=== PATIENT | male | born 1960 | race Caucasian/White ===

== ENCOUNTER 2016-02-29 13:43 | Emergency (ER) | payer SELFPAY ==
[~2016-02-29] VITALS: Ht 180.3 cm; Wt 113.4 kg
[~2016-02-29 13:43] MED LIST: AMLO10TA4 PO; AMLO5TAB2 PO; ASPI325T4 PO; ATOR20TA58 PO; BUSP10TA PO; CHLO4TAB20 PO; CLOP75TA PO; DOCU-27 PO; FINA5TAB4 PO; FURO-68 PO; HYDR25TA PO; IBUP-1027 PO; INDO50CA PO; ISOS30TA4 PO; LISI40TA PO; LOPE2TAB56 PO; MELO-150 PO; METO50TA2 PO; NITR0.4T SL; OLAN5TAB3 PO; RANI300T PO; SERT25TA PO; TERA2CAP3 PO; TRAM-29 PO; TRAZ50TA15 PO
[2016-02-29] MEDS ORDERED: LEVO750T31 PO (14:32)
[2016-02-29] MEDS ORDERED: PRED20TA PO (14:33)
--- NOTE | 2016-02-29 14:33 | PHYS DOC ---
Past Medical History Past Medical History: A-Fib, CHF, COPD, GERD, Hypertension Past Surgical History: Appendectomy, Coronary Bypass Surgery Alcohol Use: None Drug Use: None Adult General Chief Complaint Chief Complaint: COUGH HPI HPI Patient is a 55 year old male presents emergency Department stating he's had a 3 week history of cough and congestion. He states that he has a history of COPD and continues to smoke. He states that he has had some shortness of breath with ambulation. He also states that he has been having a productive cough that is green in color occasionally he has cleared production of cough with streaking of blood. Patient states that he has taken his respiratory inhalers more frequently than normal. He denies any fever, chills or any nausea vomiting. She is also noncompliant with medication as he states he has a history of high blood pressure. He states that he has been out of his high blood pressure medication. He states that the emergency department refills his prescriptions for him. He denies having a primary care physician. Review of Systems Review of Systems Constitutional: Denies fever or chills [] Eyes: Denies change in visual acuity, redness, or eye pain [] HENT: Denies nasal congestion or sore throat [] Respiratory: cough with shortness of breath Cardiovascular: No additional information not addressed in HPI [] GI: Denies abdominal pain, nausea, vomiting, bloody stools or diarrhea [] : Denies dysuria or hematuria [] Musculoskeletal: Denies back pain or joint pain [] Integument: Denies rash or skin lesions [] Neurologic: Denies headache, focal weakness or sensory changes [] Current Medications Current Medications Current Medications Medications (Trade) Dose Ordered Sig/Jus Start Time Stop Time Status Last Admin Dose Admin Albuterol/ Ipratropium (Duoneb) 3 ml 1X ONCE 02/29/16 14:45 02/29/16 14:46 DC 02/29/16 14:40 3 ML Prednisone (Prednisone) 40 mg 1X ONCE 02/29/16 14:45 02/29/16 14:46 DC 02/29/16 14:41 40 MG Allergies Allergies Allergies Coded Allergies Type Severity Reaction Last Updated Verified codeine Allergy Severe throat swelling, tolerates Morphine 05/30/14 Yes Physical Exam Physical Exam Constitutional: Well developed, well nourished, no acute distress, non-toxic appearance. [] HENT: Normocephalic, atraumatic, bilateral external ears normal, oropharynx moist, no oral exudates, nose normal. [] Eyes: PERRLA, EOMI, conjunctiva normal, no discharge. [] Neck: Normal range of motion, no tenderness, supple, no stridor. [] Cardiovascular:Heart rate regular rhythm, no murmur [] Lungs & Thorax: Bilateral breath sounds decreased bilaterally Skin: Warm, dry, no erythema, no rash. [] Back: No tenderness Extremities: No tenderness, no cyanosis, no clubbing, ROM intact, no edema. [] Neurologic: Alert and oriented X 3, normal motor function, normal sensory function, no focal deficits noted. [] Psychologic: Affect normal, judgement normal, mood normal. [] Current Patient Data Vital Signs Vital Signs Date Time Temp Pulse Resp B/P Pulse Ox O2 Delivery O2 Flow Rate FiO2 02/29/16 14:43 Room Air 02/29/16 14:01 97.7 77 18 169/118 98 97.7 EKG EKG [] Radiology/Procedures Radiology/Procedures [facility] [address] [place] [address] IMAGING REPORT Signed PATIENT: ARIAS BRAUN ACCOUNT: [id number] : 1960 LOCATION: ER AGE: 55 SEX: M EXAM STATUS: PRE ER ORD. PHYSICIAN: RODRÍGUEZ TSE NP REASON: cough times 3 weeks green to clear with blood streaks, SOA PROCEDURE: CHEST PA & LATERAL Indication: Productive cough for 3 weeks. Time of exam 1425 hours. Correlation is made with prior study 12/16/2015. Changes of median sternotomy and CABG are noted. The lungs are clear. The pulmonary vascularity is normal. No effusion or pneumothorax is detected. Impression: No acute cardiopulmonary process is detected. PQRS Compliance Statement: One or more of the following individualized dose reduction techniques were utilized for this examination: 1. Automated exposure control 2. Adjustment of the mA and/or kV according to patient size 3. 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 (See chart for details) Chest x-ray was negative per radiologist. Patient was provided with respiratory treatment steroids. He'll be discharged home on Levaquin as the signs and symptoms of become recurrent for the last 3 weeks. We'll recommend him to continue his treatments at home. Patient agrees with discharge instructions treatment regimens and follow-up recommendations. Since symptoms to return back to emergency department as been provided. Patient was also instructed to follow- up with her primary care physician in regards to his blood pressure. Patient will be provided with hydrochlorothiazide at discharge to help with his blood pressure. Patient denies any shortness of air difficulty breathing chest pain or any lower extremity edema. [] Dragon Disclaimer Dragon Disclaimer This electronic medical record was generated, in whole or in part, using a voice recognition dictation system. Departure Departure Impression: Primary Impression: COPD with acute exacerbation Additional Impression: Hypertension Disposition: 01 HOME, SELF-CARE Condition: STABLE Referrals: UNKNOWN PCP NAME (PCP) Patient Instructions: Chronic Obstructive Pulmonary Disease Exacerbation, Easy- to-Read, Hypertension Additional Instructions: Activity as tolerated Medication as prescribed Continue with your medication at home Followup with primary care provider in 3-5 days Return to emergency department as needed for signs and symptoms that become worse. Scripts Hydrochlorothiazide (Hydrochlorothiazide Capsule )12.5 Mg Capsule1 Cap PO DAILY #30 CAP Ref 0 Prov:RODRÍGUEZ TSE NP 02/29/16 Prednisone 20 Mg [id number] Mg PO DAILY #10 TAB Prov:RODRÍGUEZ TSE NP 02/29/16 Levofloxacin (Levaquin)750 Mg Tablet1 Tab PO DAILY #5 TAB Prov:RODRÍGUEZ TSE NP 02/29/16 Problem Qualifiers RODRÍGUEZ TSE NP Feb 29, 2016 14:33
[2016-02-29] MEDS ORDERED: PREDNISONE 20 MG TABLET PO ONE (14:45)
[2016-02-29] MEDS ORDERED: IPRATRPIUM/ALBUTEROL 0.5/2.5MG 3 ML NEBU. NEB ONE (14:45)
--- NOTE | 2016-02-29 14:54 | RAD ---
Indication: Productive cough for 3 weeks. Time of exam 1425 hours. Correlation is made with prior study 12/16/2015. Changes of median sternotomy and CABG are noted. The lungs are clear. The pulmonary vascularity is normal. No effusion or pneumothorax is detected. Impression: No acute cardiopulmonary process is detected. PQRS Compliance Statement: One or more of the following individualized dose reduction techniques were utilized for this examination: 1. Automated exposure control 2. Adjustment of the mA and/or kV according to patient size 3. Use of iterative reconstruction technique
[2016-02-29 15:10] VITALS: BP 163/110
[2016-02-29] MEDS ORDERED: HYDR12.53 PO (15:19)
== END 2016-02-29 15:24 | disposition home or self-care (01) ==
LOC: ER 13:43
DX: J44.1 Chronic obstructive pulmonary disease with (acute) exacerbation (principal); I10 Essential (primary) hypertension; I48.91 Unspecified atrial fibrillation; I11.0 Hypertensive heart disease with heart failure; I50.9 Heart failure, unspecified; Z91.14 Patient's other noncompliance with medication regimen; Z88.5 Allergy status to narcotic agent
CPT/HCPCS: 71020; 94250; 94640; 99284; J7512; J7620

== ENCOUNTER 2016-07-29 19:50 | Emergency (ER) | payer SELFPAY ==
[~2016-07-29 19:50] MED LIST changes: +ALBU2.5V5 NEB; -ASPI325T4 PO; +ASPI325T8 PO; +DOCU-109 PO; -DOCU-27 PO; +FLUT12AE IH; +HYDR12.53 PO; +LEVO750T31 PO; +LOSA100T2 PO; -MELO-150 PO; +MELO15TA23 PO; +METO25TA4 PO; +OLME40TA12 PO; +PITA2TAB2 PO; +PRED20TA PO; -TRAM-29 PO; +TRAM-48 PO
--- NOTE | 2016-07-29 21:28 | PHYS DOC ---
Past Medical History Past Medical History: A-Fib, CHF, COPD, GERD, High Cholesterol, Hypertension, Other Additional Past Medical Histor: CHRONIC BACK PAIN Past Surgical History: Appendectomy, Cholecystectomy, Coronary Bypass Surgery Alcohol Use: None Drug Use: None Adult General Chief Complaint Chief Complaint: ABSCESS HPI HPI Patient is a 55 year old male who presents with right groin pain and swelling over the past 4 days. States pain is constant, gradually worsening, radiating into scrotum and testicle. States is looked like a boil and popped in the shower tonight. He denies scrotal or testicle swelling, trauma, dysuria, penile discharge, f/c, n/v, constipation, abdominal pain. Review of Systems Review of Systems Constitutional: Denies fever or chills [] Eyes: Denies change in visual acuity, redness, or eye pain [] HENT: Denies nasal congestion or sore throat [] Respiratory: Denies cough or shortness of breath [] Cardiovascular: No additional information not addressed in HPI [] GI: Denies abdominal pain, nausea, vomiting, bloody stools or diarrhea [] : Denies dysuria or hematuria [] Musculoskeletal: Denies back pain or joint pain [] Integument: Denies rash [] Neurologic: Denies headache, focal weakness or sensory changes [] Endocrine: Denies polyuria or polydipsia [] Current Medications Current Medications Current Medications Medications (Trade) Dose Ordered Sig/Jus Start Time Stop Time Status Last Admin Dose Admin Acetaminophen/ Hydrocodone Bitart (Lortab 10/325) 1 tab 1X ONCE 07/29/16 21:30 07/29/16 21:31 DC 07/29/16 21:55 1 TAB Allergies Allergies Allergies Coded Allergies Type Severity Reaction Last Updated Verified codeine Allergy Severe throat swelling, tolerates Morphine 07/29/16 Yes Physical Exam Physical Exam Constitutional: Well developed, well nourished, no acute distress, non-toxic appearance. [] HENT: Normocephalic, atraumatic, bilateral external ears normal, oropharynx moist, nose normal. [] Eyes: PERRLA, EOMI. [] Neck: Normal range of motion, supple. [] Cardiovascular:Heart rate regular rhythm [] Lungs & Thorax: Bilateral breath sounds clear to auscultation [] Abdomen: Bowel sounds normal, soft, no tenderness. [] Genitourinary: Penis without lesions, discoloration, swelling or discharge; scrotum without lesions, discoloration, swelling or discharge; testicles appropriately tender; nontender cords; Right Inguinal fold with 2x1cm area of induration with central opening with serosanguineous drainage, tender, but no crepitance; nontender perineum with no visual or palpable abnormality Skin: Warm, dry, no erythema, no rash. [] Back: Normal ROM. [] Extremities: No tenderness, ROM intact, no edema. [] Neurologic: Alert and oriented X 3, normal motor function, normal sensory function, no focal deficits noted. [] Psychologic: Affect normal, judgement normal, mood normal. [] Current Patient Data Vital Signs Vital Signs Date Time Temp Pulse Resp B/P (MAP) Pulse Ox O2 Delivery O2 Flow Rate FiO2 07/29/16 19:50 98.1 83 18 172/109 (130) 95 Room Air 98.1 Radiology/Procedures Radiology/Procedures Ultrasound soft tissue right lower quadrant IMPRESSION: Complex fluid collection at the right groin, likely related to known abscess. Electronically signed by: Anoop Laws MD (07/29/2016 10:14 PM) Course & Med Decision Making Course & Med Decision Making Pertinent Labs and Imaging studies reviewed. (See chart for details) Imaging with simple abscess. Will place on antibiotics and pain medicine for trial of outpatient therapy. Encouraged close follow-up. Return precautions given. He understands and agrees with plan. Dragon Disclaimer Dragon Disclaimer This electronic medical record was generated, in whole or in part, using a voice recognition dictation system. Departure Departure Impression: Primary Impression: Abscess Disposition: 01 HOME, SELF-CARE Condition: STABLE Referrals: NO PCP (PCP) Patient Instructions: Abscess, [id number] Additional Instructions: Take Bactrim to help with skin infection. Take Tylenol or ibuprofen as needed for moderate pain. Take hydrocodone as needed for severe pain. Do not drink, drive or operate heavy machinery after taking hydrocodone as it may make you sleepy. Follow-up with your primary care doctor within one week. Return for any concerns. Scripts Hydrocodone Bit/Acetaminophen (HYDROCODONE-APAP 5-325 ) 1 Each Tablet 1-2 TAB PO PRN Q4-6HRS Y for PAIN, #14 TAB 0 Refills Prov: Omar ELY MD 07/29/16 Sulfamethoxazole/Trimethoprim (BACTRIM DS TABLET) 1 Each Tablet 1 TAB PO BID, #14 TAB Prov: Omar ELY MD 07/29/16 Omar ELY MD Jul 29, 2016 21:28
[2016-07-29] MEDS ORDERED: HYDROcodone/APAP 10/325 1 TAB TABLET PO ONE (21:30)
--- NOTE | 2016-07-29 22:17 | RAD ---
Limited right lower quadrant ultrasound dated 07/29/2016. No comparison available. Clinical indication: History of right groin abscess. Right groin pain. FINDINGS: Sonographic imaging performed in the area of palpable abnormality. At the medial right thigh near the scrotum, there is a small hypoechoic collection just deep to the skin surface that measures up to 2.6 cm maximum dimension. There is prominent increased color Doppler flow in the region. IMPRESSION: Complex fluid collection at the right groin, likely related to known abscess. Electronically signed by: Anoop Laws MD (07/29/2016 10:14 PM)
[2016-07-29] MEDS ORDERED: SULF1TAB24 PO (22:24)
[2016-07-29] MEDS ORDERED: HYDR-2758 PO (22:24)
[2016-07-29 22:30] VITALS: BP 147/93
== END 2016-07-29 22:44 | disposition home or self-care (01) ==
LOC: ER 19:50
DX: L02.214 Cutaneous abscess of groin (principal); E78.00 Pure hypercholesterolemia, unspecified; I11.0 Hypertensive heart disease with heart failure; I50.9 Heart failure, unspecified; I48.91 Unspecified atrial fibrillation; K21.9 Gastro-esophageal reflux disease without esophagitis; J44.9 Chronic obstructive pulmonary disease, unspecified; G89.29 Other chronic pain; Z90.49 Acquired absence of other specified parts of digestive tract; Z95.1 Presence of aortocoronary bypass graft; Z88.5 Allergy status to narcotic agent
CPT/HCPCS: 76881; 99284-25

== ENCOUNTER 2016-11-04 00:03 | Inpatient (IN) | payer OTHER ==
[~2016-11-04] VITALS: Ht 180.3 cm; Wt 109.3 kg
[~2016-11-04 00:03] MED LIST changes: +HYDR-2758 PO; -METO50TA2 PO; +METO50TA6 PO; +PHEN1SUP75 RC; +PRAV40TA2 PO; +SULF1TAB24 PO; +WITC1MED TP
[2016-11-04 00:41] LABS: BASO # 0.1 x10^3/uL (0.0-0.2); BASO % 1 % (0-3); EOS % 1 % (0-3); HEMATOCRIT 43.5 % (39.0-53.0); HEMOGLOBIN 14.6 g/dL (13.0-17.5); LYMPH # 1.8 x10^3/uL (1.0-4.8); LYMPH % 12 % (24-48); MEAN CORPUSCULAR HEMOGLOBIN 29 pg (25-35); MEAN CORPUSCULAR HGB CONC 34 g/dL (31-37); MEAN CORPUSCULAR VOLUME 87 fL (79-100); MONO % 6 % (0-9); NEUT % 80 % (31-73); PLATELET COUNT 219 x10^3/uL (140-400); RED CELL DISTRIBUTION WIDTH 14.3 % (11.5-14.5); WHITE BLOOD COUNT 14.2 x10^3/uL (4.0-11.0)
[2016-11-04 00:50] LABS: INR 1.1 (0.8-1.1); PROTHROMBIN TIME PATIENT 13.7 SEC (11.7-14.0)
[2016-11-04 00:53] LABS: CALCIUM 9.2 mg/dL (8.5-10.1); CREATININE 1.2 mg/dL (0.7-1.3); GFR 62.9; POTASSIUM 3.5 mmol/L (3.5-5.1)
[2016-11-04 01:00] LABS: ALBUMIN 3.7 g/dL (3.4-5.0); ALBUMIN/GLOBULIN RATIO 1.2 (1.0-1.7); MAGNESIUM 1.9 mg/dL (1.8-2.4); TOTAL BILIRUBIN 0.4 mg/dL (0.2-1.0); TOTAL PROTEIN 6.9 g/dL (6.4-8.2)
[2016-11-04] MEDS ORDERED: NITROGLYCERIN SUBLINGUAL 0.4 MG BOTTLE OF 25. SL PRN (01:30)
[2016-11-04] MEDS ORDERED: ONDANSETRON PF 4 MG/2 ML VIAL. IV PRN (01:30)
[2016-11-04] MEDS ORDERED: ONDANSETRON PF 4 MG/2 ML VIAL. IV ONE (02:00)
[2016-11-04] MEDS: ACETAMINOPHEN 325 MG TABLET. PO PRN ×2 (02:01→12:27)
[2016-11-04 03:06] VITALS: BP 129/86
[2016-11-04] MEDS: MORPHINE SULFATE 4 MG/ML DISP.SYRIN. IV PRN ×2 (03:26→08:27)
--- NOTE | 2016-11-04 03:32 | PHYS DOC ---
Past Medical History Past Medical History: A-Fib, CHF, COPD, Diabetes-Type II, GERD, High Cholesterol, Hypertension, Other Additional Past Medical Histor: CHRONIC BACK PAIN, BPH, ARTEROSCLEROTIC HEART DISEASE, ADJUSTMENT DISORDER Past Surgical History: Appendectomy, Cholecystectomy, Coronary Bypass Surgery Additional Past Surgical Histo: w 3 stents Alcohol Use: None Drug Use: None Adult General Chief Complaint Chief Complaint: CHEST PAIN HPI HPI Patient is a 55 year old male who presents with chest pain. The patient reports onset of substernal chest pressure about 2 hours prior to arrival while at rest. Reports that pain radiated to left shoulder, associated with shortness of breath & nausea, denies diaphoresis. Denies fevers/chills, cough, lower extremity pain/swelling. He has history of CAD s/p cardiac stenting & CABG, DM, HTN, CHF, COPD. He was admitted here about 2 weeks ago for accelerated HTN, seen by cardiology, at that time they discussed medical management vs. heart cath & he ultimately went home with medical management but did not fill prescriptions. he is currently incarcerated. Review of Systems Review of Systems Constitutional: Denies fever or chills Eyes: Denies change in visual acuity HENT: Denies nasal congestion or sore throat Respiratory: Denies cough, reports shortness of breath Cardiovascular: Reports chest pain, denies edema GI: Denies abdominal pain, nausea, vomiting, bloody stools or diarrhea : Denies dysuria or hematuria Musculoskeletal: Denies back pain or joint pain Integument: Denies rash or skin lesions Neurologic: Denies headache, focal weakness or sensory changes Allergies Allergies Allergies Coded Allergies Type Severity Reaction Last Updated Verified codeine Allergy Severe throat swelling, tolerates Morphine 07/29/16 Yes Physical Exam Physical Exam Constitutional: obese, no acute distress, non-toxic appearance. HENT: Normocephalic, atraumatic, bilateral external ears normal, oropharynx moist, nose normal. Eyes: conjunctiva normal, no discharge. Neck: supple, no stridor. Cardiovascular: RRR, 2/6 systolic murmur, no edema. Lungs & Thorax: LCTAB, no wheezing, no respiratory distress. no reproducible tenderness with palpation over anterior chest wall. Abdomen: soft, nontender, nondistended. Skin: Warm, dry, no erythema, no rash. Back: No tenderness. Extremities: No tenderness, no edema. no calf tenderness or swelling. Neurologic: Alert and oriented X 3, no focal deficits noted. Psychologic: Affect normal, judgement normal, mood normal. Current Patient Data Vital Signs Vital Signs Date Time Temp Pulse Resp B/P (MAP) Pulse Ox O2 Delivery O2 Flow Rate FiO2 11/04/16 00:05 97.8 69 18 120/72 (88) 99 Room Air 97.8 Lab Values Laboratory Tests Test 11/04/16 00:30 White Blood Count 14.2 x10^3/uL (4.0-11.0) H Red Blood Count 5.00 x10^6/uL (4.30-5.70) Hemoglobin 14.6 g/dL (13.0-17.5) Hematocrit 43.5 % (39.0-53.0) Mean Corpuscular Volume 87 fL (79-100) Mean Corpuscular Hemoglobin 29 pg (25-35) Mean Corpuscular Hemoglobin Concent 34 g/dL (31-37) Red Cell Distribution Width 14.3 % (11.5-14.5) Platelet Count 219 x10^3/uL (140-400) Neutrophils (%) (Auto) 80 % (31-73) H Lymphocytes (%) (Auto) 12 % (24-48) L Monocytes (%) (Auto) 6 % (0-9) Eosinophils (%) (Auto) 1 % (0-3) Basophils (%) (Auto) 1 % (0-3) Neutrophils # (Auto) 11.3 x10^3uL (1.8-7.7) H Lymphocytes # (Auto) 1.8 x10^3/uL (1.0-4.8) Monocytes # (Auto) 0.9 x10^3/uL (0.0-1.1) Eosinophils # (Auto) 0.1 x10^3/uL (0.0-0.7) Basophils # (Auto) 0.1 x10^3/uL (0.0-0.2) Prothrombin Time 13.7 SEC (11.7-14.0) Prothrombin Time INR 1.1 (0.8-1.1) PTT 30 SEC (24-38) Sodium Level 142 mmol/L (136-145) Potassium Level 3.5 mmol/L (3.5-5.1) Chloride Level 106 mmol/L (98-107) Carbon Dioxide Level 26 mmol/L (21-32) Anion Gap 10 (6-14) Blood Urea Nitrogen 12 mg/dL (8-26) Creatinine 1.2 mg/dL (0.7-1.3) Estimated GFR (Cockcroft-Gault) 62.9 BUN/Creatinine Ratio 10 (6-20) Glucose Level 115 mg/dL (70-99) H Calcium Level 9.2 mg/dL (8.5-10.1) Magnesium Level 1.9 mg/dL (1.8-2.4) Total Bilirubin 0.4 mg/dL (0.2-1.0) Aspartate Amino Transferase (AST) 13 U/L (15-37) L Alanine Aminotransferase (ALT) 21 U/L (16-63) Alkaline Phosphatase 77 U/L (46-116) Troponin I Quantitative < 0.017 ng/mL (0.000-0.055) FP-Svr-W-Type Natriuretic Peptide 290 pg/mL (0-124) H Total Protein 6.9 g/dL (6.4-8.2) Albumin 3.7 g/dL (3.4-5.0) Albumin/Globulin Ratio 1.2 (1.0-1.7) Laboratory Tests 11/04/16 00:30 Laboratory Tests 11/04/16 00:30 EKG EKG interpreted by me: NSR rate 67, no acute ST/T wave changes, normal intervals, PVC[] Radiology/Procedures Radiology/Procedures CXR: interpreted by me: cardiomegaly, no infiltrate, no pneumothorax, no acute process. Course & Med Decision Making Course & Med Decision Making Pertinent Labs and Imaging studies reviewed. (See chart for details) The patient presents with chest pain. He had received aspirin & nitro en route , & symptoms had improved. Obtained labs, EKG, CXR. No acute abnormality but I did review cardiology notes from previous visit & recommended admission for further cardiology evaluation. Patient agrees with plan of care. ANUPAMA score is 3. Discussed with Dr. Taylor who agrees to admit to inpatient status, cardiology consult to Dr. Sandoval. The patient is admitted in stable condition. [] Dragon Disclaimer Dragon Disclaimer This electronic medical record was generated, in whole or in part, using a voice recognition dictation system. Departure Departure Impression: Primary Impression: Chest pain Additional Impression: Coronary artery disease Disposition: ADMITTED INPATIENT Condition: STABLE Referrals: NO PCP (PCP) Problem Qualifiers CLAIR JOAQUIN MD Nov 04, 2016 03:32
[2016-11-04] MEDS ORDERED: BUSP5TAB PO (05:07)
[2016-11-04] MEDS ORDERED: CICL6.1H3 IH (05:07)
[2016-11-04] MEDS ORDERED: TRAZ50TA15 PO (05:07)
[2016-11-04] MEDS ORDERED: VENTOLIN HFA18 GM INH (05:07)
[2016-11-04 07:00] VITALS: BP 142/76
--- NOTE | 2016-11-04 07:18 | EKG ---
[facility] [address] [place] [address] Test Date: 2016-11-04 Test Time: 00:10:34 Pat Name: ARIAS BRAUN Department: Room: 262 1 Gender: M [employer]: : 1960 Requested By: CLAIR JOAQUIN Order Number: [id number] Reading MD: Theo Correa Measurements Intervals [place] Rate: 67 P: 42 CO: 190 QRS: 16 QRSD: 118 T: 55 QT: 396 QTc: 421 Interpretive Statements SINUS RHYTHM VENTRICULAR PREMATURE COMPLEX(ES) NONSPECIFIC ST-T WAVE CHANGES. LEFT ATRIAL ABNORMALITY RI6.01 Unconfirmed report Compared to ECG 10/20/2016 00:11:03 Atrial abnormality now present Electronically Signed On 11-23-2016 10:20:02 CDT by Theo Correa
--- NOTE | 2016-11-04 07:22 | RAD ---
EXAM: Chest one view. HISTORY: Chest pain. COMPARISON: 10/20/2016. FINDINGS: A frontal view of the chest is obtained. There are changes of coronary artery bypass grafting. There are no confluent infiltrates. There is no pneumothorax or pleural effusion. The heart is mildly enlarged. A chronic right rib fractures noted. IMPRESSION: 1. Mild cardiomegaly.
[2016-11-04] MEDS: IPRATRPIUM/ALBUTEROL 0.5/2.5MG 3 ML NEBU. NEB SCH ×3 (08:55→16:09)
[2016-11-04] MEDS ORDERED: FLU VACC QS2017-18 (36MOS+)/PF 0.5 ML SYRINGE. VAX IM ONE (09:00)
[2016-11-04] MEDS ORDERED: NON FORMULARY ITEM (Albuterol Sulfate (Ventolin Hfa Inhaler) 1 PUFF) INH PRN (09:30)
--- NOTE | 2016-11-04 09:32 | PDOC2 ---
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 Pt was recently discharged and was noted to have not been taking his medications and was admitted for uncontrolled HTN and was treated. Unfortunately after medication adjustment he decided not to get restarted with any of his medications prescribed to which after discharged he was incarcerated again. This time he came in with chest tightness which got better with x1 NTG and was associated with nausea and mild SOA. Otherwise no diaphoresis, vomiting or palpitations. He continues to smoke tobacco and explained to me that he could not afford the medications prescribed which is why he did not fill any. Based on review his medications were noted from the $4 list at [facility] but he explained that it cost about $200. Presently denies any discomfort. PAST MEDICAL HISTORY Past Medical History Cardiovascular: AFIB, CAD, CHF, HTN, Hyperlipidemia, Other (mild ascending aortic aneurysm) Pulmonary: COPD CENTRAL NERVOUS SYSTEM: TIA, Other (No pertinent history) GI: GERD Heme/Onc: No pertinent hx Hepatobiliary: Cholelithiasis Psych: Anxiety Musculoskeletal: Osteoarthritis Rheumatologic: No pertinent hx Infectious disease: No pertinent hx ENT: No pertinent hx Endocrine: Diabetes (2) Cardiovascular: CAD, HTN, Hyperlipidemia PAST SURGICAL HISTORY Past Surgical History Cholecystectomy, CABG (2007), Other (PCI/stent to LCx 10/2015) FAMILY HISTORY Family History noncontributory to CV SOCIAL HISTORY Social History Smoke: 1 pack per day ALCOHOL: none Drugs: None Lives: Alone CURRENT MEDICATIONS CURRENT MEDICATIONS Current Medications Medications (Trade) Dose Ordered Sig/Jus Route PRN Reason Start Time Stop Time Status Last Admin Dose Admin Ondansetron HCl (Zofran) 4 mg 1X ONCE IV 11/04/16 02:00 11/04/16 02:01 DC 11/04/16 02:02 Morphine Sulfate 2 mg PRN Q2HR PRN IV SEVERE PAIN 11/04/16 01:30 11/05/16 01:29 11/04/16 08:27 Acetaminophen (Tylenol) 650 mg PRN Q4HRS PRN PO FEVER 11/04/16 01:30 11/05/16 01:29 11/04/16 02:01 Albuterol/ Ipratropium (Duoneb) 3 ml RTQID NEB 11/04/16 08:00 11/05/16 07:59 11/04/16 08:55 Influenza Virus Vaccine Quadrival (Fluarix Quad [id number] Syringe) 0.5 ml ONCE ONCE VAX IM 11/04/16 09:00 11/04/16 09:01 DC 11/04/16 08:32 ALLERGIES ALLERGIES: Coded Allergies: codeine (Verified Allergy, Severe, throat swelling, tolerates Morphine, ) TOLERATES HYDROCODONE ROS Review of System 14 point ROS evaluated with pertinent positives noted per HPI PHYSICAL EXAM General: Alert, Oriented X3, Cooperative, No acute distress HEENT: Atraumatic, Mucous membr. moist/pink Lungs: Normal air movement, Other (faint basilar crackles) Heart: Regular rate (SR without significant ectopies), Normal S1, Normal S2, Other (2/6 systolic murmur to LLS border) Abdomen: Soft, No tenderness Extremities: No cyanosis, No edema Skin: No breakdown, No significant lesion Neuro: Normal speech, Sensation intact Psych/Mental Status: Mental status NL, Mood NL MUSCULOSKELETAL: Osteoarthritic changes both hands VITALS VITALS Vital Signs Date Time Temp Pulse Resp B/P (MAP) Pulse Ox O2 Delivery O2 Flow Rate FiO2 11/04/16 08:27 94 Room Air 11/04/16 07:00 97.9 66 21 142/76 (98) 97.9 LABS Lab: Laboratory Tests Test 11/04/16 00:30 11/04/16 07:15 White Blood Count 14.2 x10^3/uL (4.0-11.0) Red Blood Count 5.00 x10^6/uL (4.30-5.70) Hemoglobin 14.6 g/dL (13.0-17.5) Hematocrit 43.5 % (39.0-53.0) Mean Corpuscular Volume 87 fL (79-100) Mean Corpuscular Hemoglobin 29 pg (25-35) Mean Corpuscular Hemoglobin Concent 34 g/dL (31-37) Red Cell Distribution Width 14.3 % (11.5-14.5) Platelet Count 219 x10^3/uL (140-400) Neutrophils (%) (Auto) 80 % (31-73) Lymphocytes (%) (Auto) 12 % (24-48) Monocytes (%) (Auto) 6 % (0-9) Eosinophils (%) (Auto) 1 % (0-3) Basophils (%) (Auto) 1 % (0-3) Neutrophils # (Auto) 11.3 x10^3uL (1.8-7.7) Lymphocytes # (Auto) 1.8 x10^3/uL (1.0-4.8) Monocytes # (Auto) 0.9 x10^3/uL (0.0-1.1) Eosinophils # (Auto) 0.1 x10^3/uL (0.0-0.7) Basophils # (Auto) 0.1 x10^3/uL (0.0-0.2) Prothrombin Time 13.7 SEC (11.7-14.0) Prothromb Time International Ratio 1.1 (0.8-1.1) Activated Partial Thromboplast Time 30 SEC (24-38) Sodium Level 142 mmol/L (136-145) Potassium Level 3.5 mmol/L (3.5-5.1) Chloride Level 106 mmol/L (98-107) Carbon Dioxide Level 26 mmol/L (21-32) Anion Gap 10 (6-14) Blood Urea Nitrogen 12 mg/dL (8-26) Creatinine 1.2 mg/dL (0.7-1.3) Estimated GFR (Cockcroft-Gault) 62.9 BUN/Creatinine Ratio 10 (6-20) Glucose Level 115 mg/dL (70-99) Calcium Level 9.2 mg/dL (8.5-10.1) Magnesium Level 1.9 mg/dL (1.8-2.4) Total Bilirubin 0.4 mg/dL (0.2-1.0) Aspartate Amino Transf (AST/SGOT) 13 U/L (15-37) Alanine Aminotransferase (ALT/SGPT) 21 U/L (16-63) Alkaline Phosphatase 77 U/L (46-116) Troponin I Quantitative < 0.017 ng/mL (0.000-0.055) < 0.017 ng/mL (0.000-0.055) ED-Ldy-A-Type Natriuretic Peptide 290 pg/mL (0-124) Total Protein 6.9 g/dL (6.4-8.2) Albumin 3.7 g/dL (3.4-5.0) Albumin/Globulin Ratio 1.2 (1.0-1.7) ECHOCARDIOGRAM ECHOCARDIOGRAM <Conclusion> TTE Left ventricle systolic function is moderately to severely impaired. The Ejection Fraction is 25-30%. There is global hypokinesis of the left ventricle with inferior, lateral severe hypokinesis. DATE: 10/20/16 1237 STRESS TEST STRESS TEST Conclusion 1. No evidence of EKG changes with vasodilator stress. 2. Fixed apical defect suggestive of prior infarct. 3. There is a large sized, moderate to severe in intensity, basal to mid inferior/inferolateral mostly reversible defect suggestive of prior infarct with mild aiyana-infarct ischemia. 4. Low normal EF at 50% 5. Low to moderate risk study Recommendations Based on review of recent angiography, the reversible defect is related to diffuse disease involving the RCA, would recommend medical management as initial trial and cath only if persistent symptoms in the future. DATE: 06/28/16 1309 HEART CATH HEART CATH Conclusion: [facility] 1. Severe [place] vessel coronary artery disease s/p CABG as described above with patent GARCIA to LAD, patent SVG to RCA, 90% stenosis of SVG to OM/LCX. 2. Successful PCI/stent placement to the saphenous vein graft troponin is marginal branch of left circumflex artery. 3. Normal left ventricular systolic function with ejection fraction estimated at 50-55%. Recommendations 1. Aspirin 325 mg daily 2. Plavix 75 mg daily for preferably one year 3. Cardiovascular risk factor modification DATE: 10/20/15 0938 ASSESSMENT/PLAN ASSESSMENT/PLAN 1. Chest pain: Troponin series normal, EKG SR without acute changes, Doubt ACS. Possible vasopasm with diffuse disease with underlying anxiety 2. CAD: CABG 2007, PCI/BMS to LCx 11/2015. stable. Recent MPI without reversible defects 5. ICM/chronic systolic CHF: EF 25-30%. NYHA 1-2 compensated 6. COPD with continued tobaccoism 7. DM2/HLP/CKD2 8. Hx of TIA 9. Hx of PAFIB: Remains SR with no evidence of AFIB. 9. Noncompliance: remains to be noncompliant 10. HTN: controlled Recommendations 1. Cardiac meds as follows: ECASA 325 mg, Plavix, Lisinopril 40 mg po daily, lasix 20 mg po daily, and metoprolol 12.5 mg po bid, pravastatin and addition of imdur. 2. No further cardiac testing. Follow up in 2 weeks. 3. With his significant noncompliance, will continue ASA for stroke prevention 4. Smoking cessation. Discussed significant compliance 5. Will reevaluate in 3 months for AICD consideration pending correction of compliance issues 6. Pt was enrolled for [employer] but due to recent incarceration, I dont believe this will not be fulfilled and suspecting the snf system would not cover this. Problems: JEFFERSON ESCOBAR MD 11/04/16 1653: CARDIAC CONSULT ALLERGIES ALLERGIES: Coded Allergies: codeine (Verified Allergy, Severe, throat swelling, tolerates Morphine, ) TOLERATES HYDROCODONE ASSESSMENT/PLAN ASSESSMENT/PLAN Pt. seen and examined. 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 55 y.o male with complex medical history and social situation. No chest pain at this time after med titration. F/u in 2 weeks on an outpt basis. Thanks for consult. I spoke extensively with the patient. No need for repeat heart cath unless new symptoms on current meds. Problems: LEANDRO CRUM APRN Nov 04, 2016 09:32 JEFFERSON ESCOBAR MD Nov 04, 2016 16:53
[2016-11-04] MEDS ORDERED: REGADENOSON 0.4 MG/5 ML DISP.SYRIN. IV ONE (09:45)
[2016-11-04] MEDS ORDERED: FUROSEMIDE 40 MG TABLET. PO SCH (10:00)
[2016-11-04] MEDS ORDERED: ASPIRIN 325 MG TABLET PO SCH (10:00)
[2016-11-04] MEDS ORDERED: INFLUENZA VAX SCREEN BY RX. MC ONE (10:00)
[2016-11-04] MEDS ORDERED: ALBUTEROL SULFATE 2.5 MG/3 ML NEBU. NEB PRN (10:00)
[2016-11-04] MEDS ORDERED: PNEUMOCOCCAL VAX SCREEN BY RX. MC PRN (10:00)
[2016-11-04] MEDS ORDERED: CLOPIDOGREL BISULFATE 75 MG TABLET PO SCH (10:00)
[2016-11-04] MEDS ORDERED: PANT40TA5 PO (10:22)
[2016-11-04] MEDS ORDERED: ISOS30TA4 PO (10:22)
[2016-11-04] MEDS ORDERED: ISOSORBIDE MONONITRATE ER 30 MG TAB.ER.24H PO SCH (10:30)
[2016-11-04 11:00] VITALS: BP 126/75
[2016-11-04] MEDS ORDERED: PANTOPRAZOLE 40 MG TABLET.DR. PO SCH (11:30)
--- NOTE | 2016-11-04 12:03 | HP ---
ADMIT DATE: 11/04/2016 DATE OF SERVICE: 11/04/2016 CHIEF COMPLAINT: Chest pain. HISTORY OF PRESENT ILLNESS: The patient is a 55-year-old gentleman with significant heart history, recent admission 2 weeks ago for chest pain and negative MPI who had been in snf ever since his discharge from the hospital and now presents with recurrent chest pain. He reports that his pain actually radiates to the left shoulder with shortness of breath and nausea. Denies any diaphoresis, any lightheadedness, any fevers or chills. He is eager to undergo more testing here in the hospital. PAST MEDICAL HISTORY: CAD status post CABG in the distant past, CHF, AFib, hypertension, diabetes, GERD, chronic back pain. PAST SURGICAL HISTORY: He is status post appendectomy, cholecystectomy as well as 3 stents. FAMILY HISTORY: CAD. SOCIAL HISTORY: Currently in snf, had been smoking about half a pack per day previously. Denies any alcohol or drug use. ALLERGIES: CODEINE. MEDICATIONS: Reconciled with MAR. REVIEW OF SYSTEMS: The patient relates that his symptoms are much better, but he feels not well all over. Still has faint chest pain, but appears quite comfortable. Rest of organ system review is negative. PHYSICAL EXAMINATION: VITAL SIGNS: From today show a blood pressure of 142/76, heart rate of 66, respiratory rate at 21, 95% pulse ox on room air. GENERAL: This is a well-nourished 55-year-old gentleman, alert and oriented, no acute distress. HEENT: Shows no scleral icterus. Oral mucosa is pink and moist. He is edentulous. NECK: Supple, without any JVD. LUNGS: Clear bilaterally. HEART: Regular rate and rhythm. ABDOMEN: Has positive bowel sounds, soft, nontender. EXTREMITIES: Show no edema. SKIN: Warm, soft and dry. LABORATORY DATA: CBC: WBC of 14.2, hemoglobin 14.6, platelets of 219. Chemistries: BUN and creatinine of 12 and 1.2, normal electrolytes. LFTs: Normal. Troponins negative. IMAGING STUDIES: Chest x-ray obtained in the Emergency Room shows mild cardiomegaly, no other abnormalities. HOSPITAL COURSE: The patient is a 55-year-old gentleman who is unfortunately noncompliant with his medications, not having had any meds prior to his previous admission and not filling the ____ medication list that he was discharged with last time here. He now presents with chest pain. Since he just has been stress tested 2 weeks ago, repeat is not indicate. We will optimize his medical treatment, restart all his medications. Imdur has been added by Cardiology. He does have a followup with Dr. Sandoval in 2 weeks from his previous hospitalization. DISCHARGE DIAGNOSES: Chest pain, suspected gastroesophageal reflux disease, noncardiac. DISCHARGE DISPOSITION: To half-way. DISCHARGE CONDITION: Stable. DISCHARGE MEDICATIONS: Please refer to MAR. DISCHARGE INSTRUCTIONS: The patient will follow up with Dr. Sandoval on 11/18/2016 at 10:30 as previously arranged. JOHNNY RAMOS MD DR: UR/nts JOB#: [id number] / [id number]
--- NOTE | 2016-11-04 15:58 | SSS ---
ADMIT DATE: 11/04/2016 DATE OF SERVICE: 11/04/2016 CHIEF COMPLAINT: Chest pain. HISTORY OF PRESENT ILLNESS: The patient is a 55-year-old gentleman with significant heart history, recent admission 2 weeks ago for chest pain and negative MPI who had been in [facility] ever since his discharge from the hospital and now presents with recurrent chest pain. He reports that his pain actually radiates to the left shoulder with shortness of breath and nausea. Denies any diaphoresis, any lightheadedness, any fevers or chills. He is eager to undergo more testing here in the hospital. PAST MEDICAL HISTORY: CAD status post CABG in the distant past, CHF, AFib, hypertension, diabetes, GERD, chronic back pain. PAST SURGICAL HISTORY: He is status post appendectomy, cholecystectomy as well as 3 stents. FAMILY HISTORY: CAD. SOCIAL HISTORY: Currently in [facility], had been smoking about half a pack per day previously. Denies any alcohol or drug use. ALLERGIES: CODEINE. MEDICATIONS: Reconciled with MAR. REVIEW OF SYSTEMS: The patient relates that his symptoms are much better, but he feels not well all over. Still has faint chest pain, but appears quite comfortable. Rest of organ system review is negative. PHYSICAL EXAMINATION: VITAL SIGNS: From today show a blood pressure of 142/76, heart rate of 66, respiratory rate at 21, 95% pulse ox on room air. GENERAL: This is a well-nourished 55-year-old gentleman, alert and oriented, no acute distress. HEENT: Shows no scleral icterus. Oral mucosa is pink and moist. He is edentulous. NECK: Supple, without any JVD. LUNGS: Clear bilaterally. HEART: Regular rate and rhythm. ABDOMEN: Has positive bowel sounds, soft, nontender. EXTREMITIES: Show no edema. SKIN: Warm, soft and dry. LABORATORY DATA: CBC: WBC of 14.2, hemoglobin 14.6, platelets of 219. Chemistries: BUN and creatinine of 12 and 1.2, normal electrolytes. LFTs: Normal. Troponins negative. IMAGING STUDIES: Chest x-ray obtained in the Emergency Room shows mild cardiomegaly, no other abnormalities. HOSPITAL COURSE: The patient is a 55-year-old gentleman who is unfortunately noncompliant with his medications, not having had any meds prior to his previous admission and not filling the prescribed medication list that he was discharged with last time here. He now presents with chest pain. Since he just has been stress tested 2 weeks ago, repeat is not indicated. We will optimize his medical treatment, restart all his medications. Imdur has been added by Cardiology. He does have a followup with Dr. Sandoval in 2 weeks from his previous hospitalization. DISCHARGE DIAGNOSES: Chest pain, suspected gastroesophageal reflux disease, noncardiac. DISCHARGE DISPOSITION: To [facility]. DISCHARGE CONDITION: Stable. DISCHARGE MEDICATIONS: Please refer to MAR. DISCHARGE INSTRUCTIONS: The patient will follow up with Dr. Sandoval on 11/18/2016 at 10:30 as previously arranged. JOHNNY RAMOS MD DR: ANGELICA/nts JOB#: [id number] / [id number] PACO
[2016-11-04] MEDS ORDERED: ATORVASTATIN CALCIUM 10 MG TABLET. PO SCH (21:00)
[2016-11-05] MEDS ORDERED: LISINOPRIL 40 MG TABLET. PO SCH (09:00)
== END 2016-11-04 15:20 | DRG 392 ==
LOC: ER 00:03 → EEVIPCON 00:03 → 2 SOUTH 01:13
PROVIDERS: ADMIT Internal Medicine Hematology & Oncology; ATTEND Internal Medicine Hematology & Oncology
DX: K21.9 Gastro-esophageal reflux disease without esophagitis (principal); E11.22 Type 2 diabetes mellitus with diabetic chronic kidney disease; I13.0 Hypertensive heart and chronic kidney disease with heart failure and stage 1 through stage 4 chronic kidney disease, or unspecified chronic kidney disease; I50.22 Chronic systolic (congestive) heart failure; E78.5 Hyperlipidemia, unspecified; E78.00 Pure hypercholesterolemia, unspecified; F17.210 Nicotine dependence, cigarettes, uncomplicated; I25.10 Atherosclerotic heart disease of native coronary artery without angina pectoris; I48.91 Unspecified atrial fibrillation; J44.9 Chronic obstructive pulmonary disease, unspecified; N18.2 Chronic kidney disease, stage 2 (mild); N40.0 Benign prostatic hyperplasia without lower urinary tract symptoms; Z82.49 Family history of ischemic heart disease and other diseases of the circulatory system; Z86.73 Personal history of transient ischemic attack (TIA), and cerebral infarction without residual deficits; Z90.49 Acquired absence of other specified parts of digestive tract; Z91.19 Patient's noncompliance with other medical treatment and regimen; Z95.1 Presence of aortocoronary bypass graft; Z95.5 Presence of coronary angioplasty implant and graft; F41.9 Anxiety disorder, unspecified; F43.20 Adjustment disorder, unspecified; G89.29 Other chronic pain; M19.90 Unspecified osteoarthritis, unspecified site; Z90.89 Acquired absence of other organs; Z88.5 Allergy status to narcotic agent
CPT/HCPCS: 36415; 71010; 80053; 83735; 83880; 84484; 85025; 85610; 85730; 90686; 93005; 94250; 94640; 96374; J2270; J2405; J7620; 99285-25

== ENCOUNTER 2017-08-29 22:46 | Observation (INO) | payer SELFPAY, OTHER ==
[2017-08-29 23:10] LABS: ADD MAN DIFF? NO
[2017-08-29 23:12] LABS: BASO # 0.1 x10^3/uL (0.0-0.2); BASO % 1 % (0-3); EOS # 0.3 x10^3/uL (0.0-0.7); EOS % 3 % (0-3); HEMATOCRIT 41.9 % (39.0-53.0); HEMOGLOBIN 14.5 g/dL (13.0-17.5); LYMPH # 2.8 x10^3/uL (1.0-4.8); LYMPH % 28 % (24-48); MEAN CORPUSCULAR HEMOGLOBIN 29 pg (25-35); MEAN CORPUSCULAR HGB CONC 35 g/dL (31-37); MEAN CORPUSCULAR VOLUME 85 fL (79-100); MONO % 11 % (0-9); NEUT # 5.6 x10^3uL (1.8-7.7); NEUT % 57 % (31-73); PLATELET COUNT 227 x10^3/uL (140-400); RED BLOOD COUNT 4.94 x10^6/uL (4.30-5.70); RED CELL DISTRIBUTION WIDTH 14.2 % (11.5-14.5); WHITE BLOOD COUNT 9.8 x10^3/uL (4.0-11.0)
[2017-08-29 23:24] LABS: ANION GAP 9 (6-14); BLOOD UREA NITROGEN 26 mg/dL (8-26); CALCIUM 9.3 mg/dL (8.5-10.1); CARBON DIOXIDE 27 mmol/L (21-32); CHLORIDE 108 mmol/L (98-107); CREATININE 1.2 mg/dL (0.7-1.3); GFR 62.6; GLUCOSE 124 mg/dL (70-99); SODIUM 144 mmol/L (136-145)
[2017-08-29 23:35] LABS: PROTHROMBIN TIME PATIENT 13.1 SEC (11.7-14.0)
[2017-08-29 23:36] LABS: NT-PRO BNP 60 pg/mL (0-124)
[2017-08-29 23:42] LABS: TROPONINI < 0.017 ng/mL (0.000-0.055)
[2017-08-30] MEDS ORDERED: ACETAMINOPHEN 325 MG TABLET. PO (00:15)
[2017-08-30] MEDS: ONDANSETRON PF 4 MG/2 ML VIAL. IV (00:25)
[2017-08-30] MEDS: MORPHINE SULFATE 4 MG/ML DISP.SYRIN. IV ×3 (00:26→17:06)
[2017-08-30] MEDS ORDERED: PNEUMOCOCCAL VAX SCREEN BY RX. MC (03:15)
[2017-08-30 05:11] LABS: TROPONINI < 0.017 ng/mL (0.000-0.055)
[2017-08-30 06:21] LABS: TROPONINI < 0.017 ng/mL (0.000-0.055)
[2017-08-30] MEDS ORDERED: DOCUSATE SODIUM 100 MG CAPSULE. PO (13:30)
[2017-08-30] MEDS: CARVEDILOL 12.5 MG TABLET. PO (17:00)
[2017-08-30] MEDS: ISOSORBIDE MONONITRATE ER 30 MG TAB.ER.24H PO (17:03)
[2017-08-30] MEDS: PANTOPRAZOLE 40 MG TABLET.DR. PO (17:04)
[2017-08-30] MEDS: LISINOPRIL 20 MG TABLET PO (17:04)
[2017-08-30] MEDS: FUROSEMIDE 20 MG TABLET PO (17:04)
[2017-08-30] MEDS: CLOPIDOGREL BISULFATE 75 MG TABLET PO (17:04)
[2017-08-30] MEDS: ATORVASTATIN CALCIUM 40 MG TABLET. PO (21:56)
[2017-08-30] MEDS: PNEUMOC CONJ VACC 23-VALENT 0.5 ML VIAL. VAX IM (21:58)
[2017-08-31 03:18] LABS: MRSA BY PCR Negative (Negative)
[2017-08-31 04:31] LABS: ADD MAN DIFF? NO
[2017-08-31 04:39] LABS: BASO # 0.1 x10^3/uL (0.0-0.2); BASO % 1 % (0-3); EOS # 0.2 x10^3/uL (0.0-0.7); EOS % 2 % (0-3); HEMATOCRIT 38.5 % (39.0-53.0); HEMOGLOBIN 13.2 g/dL (13.0-17.5); LYMPH # 2.7 x10^3/uL (1.0-4.8); LYMPH % 25 % (24-48); MEAN CORPUSCULAR HEMOGLOBIN 30 pg (25-35); MEAN CORPUSCULAR HGB CONC 34 g/dL (31-37); MEAN CORPUSCULAR VOLUME 87 fL (79-100); MONO # 1.1 x10^3/uL (0.0-1.1); MONO % 11 % (0-9); NEUT # 6.6 x10^3uL (1.8-7.7); NEUT % 61 % (31-73); PLATELET COUNT 205 x10^3/uL (140-400); RED BLOOD COUNT 4.45 x10^6/uL (4.30-5.70); RED CELL DISTRIBUTION WIDTH 14.4 % (11.5-14.5); WHITE BLOOD COUNT 10.8 x10^3/uL (4.0-11.0)
[2017-08-31 05:14] LABS: ANION GAP 6 (6-14); BLOOD UREA NITROGEN 23 mg/dL (8-26); CALCIUM 8.7 mg/dL (8.5-10.1); CARBON DIOXIDE 32 mmol/L (21-32); CHLORIDE 104 mmol/L (98-107); CREATININE 1.2 mg/dL (0.7-1.3); GFR 62.6; GLUCOSE 95 mg/dL (70-99); POTASSIUM 4.1 mmol/L (3.5-5.1); SODIUM 142 mmol/L (136-145)
[2017-08-31] MEDS: REGADENOSON 0.4 MG/5 ML DISP.SYRIN. IV (09:24)
[2017-08-31] MEDS: MORPHINE SULFATE 2 MG/ML DISP.SYRIN. IV ×2 (11:43→20:17)
[2017-08-31] MEDS: CARVEDILOL 12.5 MG TABLET. PO ×2 (11:48→17:51)
[2017-08-31] MEDS: ISOSORBIDE MONONITRATE ER 30 MG TAB.ER.24H PO (11:48)
[2017-08-31] MEDS: LISINOPRIL 20 MG TABLET PO (11:49)
[2017-08-31] MEDS: PANTOPRAZOLE 40 MG TABLET.DR. PO (11:49)
[2017-08-31] MEDS: FUROSEMIDE 20 MG TABLET PO (11:49)
[2017-08-31] MEDS: CLOPIDOGREL BISULFATE 75 MG TABLET PO (11:49)
[2017-08-31 11:54] LABS: TROPONINI < 0.017 ng/mL (0.000-0.055)
[2017-08-31] MEDS: ATORVASTATIN CALCIUM 40 MG TABLET. PO (20:16)
[2017-09-01] MEDS: MORPHINE SULFATE 2 MG/ML DISP.SYRIN. IV ×4 (00:21→19:40)
[2017-09-01] MEDS: PANTOPRAZOLE 40 MG TABLET.DR. PO ×2 (07:30→08:49)
[2017-09-01] MEDS: CARVEDILOL 12.5 MG TABLET. PO ×3 (08:49→17:00)
[2017-09-01] MEDS: FUROSEMIDE 20 MG TABLET PO ×2 (08:50→15:02)
[2017-09-01] MEDS: CLOPIDOGREL BISULFATE 75 MG TABLET PO ×2 (08:50→15:03)
[2017-09-01] MEDS: LISINOPRIL 20 MG TABLET PO ×2 (08:50→15:04)
[2017-09-01] MEDS: ISOSORBIDE MONONITRATE ER 30 MG TAB.ER.24H PO ×2 (08:51→15:05)
[2017-09-01] MEDS ORDERED: LIDOCAINE 2% 20 ML VIAL. (12:57)
[2017-09-01] MEDS ORDERED: IODIXANOL 320 MG/ML 100 ML VIAL. ×2 (12:57→14:05)
[2017-09-01] MEDS ORDERED: fentaNYL PF VIAL 100 MCG/2 ML VIAL (13:04)
[2017-09-01] MEDS ORDERED: MIDAZOLAM HCL/PF 2 MG/2 ML VIAL. ×2 (13:04→13:41)
[2017-09-01] MEDS ORDERED: CONTRAST GIVEN. MC (13:15)
[2017-09-01] MEDS ORDERED: HEPARIN for IV BOLUS 10,000 UNIT/10 ML VIAL. (13:58)
[2017-09-01] MEDS: IODIXANOL 320 MG/ML 100 ML VIAL. IART (14:23)
[2017-09-01] MEDS: LIDOCAINE 2% 20 ML VIAL. IJ (14:23)
[2017-09-01] MEDS: fentaNYL PF VIAL 100 MCG/2 ML VIAL IV (14:24)
[2017-09-01] MEDS: MIDAZOLAM HCL/PF 2 MG/2 ML VIAL. IV (14:24)
[2017-09-01] MEDS: HEPARIN for IV BOLUS 10,000 UNIT/10 ML VIAL. IV (14:26)
[2017-09-01] MEDS ORDERED: 0.9 % SODIUM CHLORIDE 10 ML DISP.SYRIN. IV (14:30)
[2017-09-01] MEDS ORDERED: NITROGLYCERIN SUBLINGUAL 0.4 MG BOTTLE OF 25. SL (14:30)
[2017-09-01] MEDS: IV NORMAL SALINE 1000ML BAG 1,000 ML IV (15:48)
[2017-09-01] MEDS: ASPIRIN ENTERIC COATED 81 MG TABLET.DR. PO (17:36)
[2017-09-01] MEDS: TRIAMCINOLONE ACETONIDE 0.1% TOPICAL CREAM 15GM TUBE. TP (19:38)
[2017-09-01] MEDS: RANOLAZINE 500 MG TAB.ER.12H PO (19:39)
[2017-09-01] MEDS: ATORVASTATIN CALCIUM 40 MG TABLET. PO (19:40)
[2017-09-01] MEDS ORDERED: traMADol 50 MG TABLET PO (20:45)
[2017-09-01] MEDS: IBUPROFEN 400 MG TABLET. PO (22:04)
[2017-09-02] MEDS: MORPHINE SULFATE 2 MG/ML DISP.SYRIN. IV (01:14)
[2017-09-02] MEDS: CLOPIDOGREL BISULFATE 75 MG TABLET PO (08:07)
[2017-09-02] MEDS: PANTOPRAZOLE 40 MG TABLET.DR. PO (08:07)
[2017-09-02] MEDS: ASPIRIN ENTERIC COATED 81 MG TABLET.DR. PO (08:08)
[2017-09-02] MEDS: RANOLAZINE 500 MG TAB.ER.12H PO (08:09)
[2017-09-02] MEDS: LISINOPRIL 20 MG TABLET PO (08:10)
[2017-09-02] MEDS: FUROSEMIDE 20 MG TABLET PO (08:10)
[2017-09-02] MEDS: CARVEDILOL 12.5 MG TABLET. PO (08:10)
[2017-09-02] MEDS: ISOSORBIDE MONONITRATE ER 30 MG TAB.ER.24H PO (08:10)
[2017-09-02] MEDS: IBUPROFEN 400 MG TABLET. PO (08:11)
[2017-09-02] MEDS: TRIAMCINOLONE ACETONIDE 0.1% TOPICAL CREAM 15GM TUBE. TP (08:11)
== END 2017-09-02 12:25 | disposition home or self-care (01) ==
LOC: 6 SOUTH 08-30 00:05 → ER 22:46
DX: I25.119 Atherosclerotic heart disease of native coronary artery with unspecified angina pectoris (principal); E11.9 Type 2 diabetes mellitus without complications; E78.00 Pure hypercholesterolemia, unspecified; E78.5 Hyperlipidemia, unspecified; G89.29 Other chronic pain; I11.0 Hypertensive heart disease with heart failure; I21.9 Acute myocardial infarction, unspecified; I25.2 Old myocardial infarction; I25.5 Ischemic cardiomyopathy; I48.91 Unspecified atrial fibrillation; I50.9 Heart failure, unspecified; J44.9 Chronic obstructive pulmonary disease, unspecified; K21.9 Gastro-esophageal reflux disease without esophagitis; N40.0 Benign prostatic hyperplasia without lower urinary tract symptoms; Z82.49 Family history of ischemic heart disease and other diseases of the circulatory system; Z86.73 Personal history of transient ischemic attack (TIA), and cerebral infarction without residual deficits; Z87.891 Personal history of nicotine dependence; Z90.49 Acquired absence of other specified parts of digestive tract; Z95.1 Presence of aortocoronary bypass graft; Z95.5 Presence of coronary angioplasty implant and graft; M54.9 Dorsalgia, unspecified; Z23 Encounter for immunization
CPT/HCPCS: 36415; 71045; 78452; 80048; 83880; 84484; 85025; 85610; 87641; 90471; 90732; 93005; 93017; 93306; 93459; 93567; 96374; 96375; 96376; 99152; 99153; 99285; A9500; C1769; C1771; C1892; G0269; G0378; G0379; J1644; J2001; J2250; J2270; J2405; J2785; J3010; J7030

== ENCOUNTER 2018-04-17 23:40 | Emergency (ER) | payer OTHER ==
[~2018-04-17] VITALS: Ht 177.8 cm; Wt 122.5 kg
[~2018-04-17 23:40] MED LIST changes: +AMLO5TAB10 PO; -AMLO5TAB2 PO; +BENZ-8 PO; +BUSP5TAB PO; +CARV12.511 PO; +CICL6.1H3 IH; +DICL100G18 TP; +DOXY100T PO; +DULO30CA2 PO; +GUAI600T47 PO; -HYDR-2758 PO; +HYDR-2761 PO; -HYDR12.53 PO; +HYDR12.575 PO; -INDO50CA PO; +INDO50CA5 PO; +IPRA3AMP29 NEB; +LISI-130 PO; +LISI-334 PO; -LISI40TA PO; +MELO7.5T29 PO; +MOME17SP NS; +NAPR-514 PO; +NITR0.4T22 SL; +OMEP40CA5 PO; +PANT40TA5 PO; +RANO500T2 PO; +SERT50TA PO; +TAMS0.4C2 PO; +TRAZ-118 PO; -TRAZ50TA15 PO; +TRIA15OI TP; +VENTOLIN HFA18 GM INH; +[UNRECOGNIZED DRUG - CODE] TP
[2018-04-18 00:16] LABS: BASO # 0.1 x10^3/uL (0.0-0.2); BASO % 1 % (0-3); EOS # 0.1 x10^3/uL (0.0-0.7); EOS % 2 % (0-3); HEMATOCRIT 39.5 % (39.0-53.0); HEMOGLOBIN 13.2 g/dL (13.0-17.5); LYMPH # 2.7 x10^3/uL (1.0-4.8); LYMPH % 30 % (24-48); MEAN CORPUSCULAR HEMOGLOBIN 29 pg (25-35); MEAN CORPUSCULAR HGB CONC 33 g/dL (31-37); MEAN CORPUSCULAR VOLUME 87 fL (79-100); MONO % 11 % (0-9); NEUT % 56 % (31-73); PLATELET COUNT 245 x10^3/uL (140-400); RED BLOOD COUNT 4.53 x10^6/uL (4.30-5.70); RED CELL DISTRIBUTION WIDTH 13.8 % (11.5-14.5); WHITE BLOOD COUNT 8.9 x10^3/uL (4.0-11.0)
[2018-04-18 00:23] LABS: CALCIUM 9.4 mg/dL (8.5-10.1); CREATININE 1.3 mg/dL (0.7-1.3); GFR 56.9; POTASSIUM 4.1 mmol/L (3.5-5.1)
[2018-04-18 00:30] LABS: ALBUMIN 3.9 g/dL (3.4-5.0); ALBUMIN/GLOBULIN RATIO 1.1 (1.0-1.7); TOTAL BILIRUBIN 0.3 mg/dL (0.2-1.0); TOTAL PROTEIN 7.5 g/dL (6.4-8.2)
--- NOTE | 2018-04-18 00:37 | PHYS DOC ---
Past Medical History Past Medical History: A-Fib, Angina, CAD, CHF, COPD, Diabetes-Type II, GERD, High Cholesterol, Hypertension, Other Additional Past Medical Histor: CHRONIC BACK PAIN, BPH, ARTEROSCLEROTIC HEART DISEASE, ADJUSTMENT DISORDER Past Surgical History: Appendectomy, Cholecystectomy, Coronary Bypass Surgery Additional Past Surgical Histo: w 3 stents Additional Information: PT. STATES HE STOPPED SMOKING 6 MONTHS AGO, PT. STATES HE USED TO SMOKE A PACK A DAY Alcohol Use: None Drug Use: None Adult General Chief Complaint Chief Complaint: CHEST PAIN [facility] HPI 57-year-old male presents with a chief complaint of chest pain. Patient has a past medical history of hypertension hyperlipidemia coronary disease with stents. Patient states sudden onset of right-sided chest pain approximate 4 hours prior to arrival. Patient states pain radiates to the back of his neck and back of his head. Patient states he has associated shortness of breath. Review of Systems Review of Systems Constitutional: Denies fever or chills [] Eyes: Denies change in visual acuity, redness, or eye pain [] HENT: Denies nasal congestion or sore throat [] Respiratory: Denies cough or shortness of breath [] Cardiovascular: No additional information not addressed in HPI [] GI: Denies abdominal pain, nausea, vomiting, bloody stools or diarrhea [] : Denies dysuria or hematuria [] Musculoskeletal: Denies back pain or joint pain [] Integument: Denies rash or skin lesions [] Neurologic: Denies headache, focal weakness or sensory changes [] Endocrine: Denies polyuria or polydipsia [] All other systems were reviewed and found to be within normal limits, except as documented in this note. Current Medications Current Medications Current Medications Medications (Trade) Dose Ordered Sig/Jus Start Time Stop Time Status Last Admin Dose Admin Aspirin (Children'S Aspirin) 324 mg 1X ONCE 04/18/18 00:45 04/18/18 00:46 DC Morphine Sulfate (Morphine Sulfate) 2 mg 1X ONCE 04/18/18 03:30 04/18/18 03:31 DC 04/18/18 03:29 2 MG Nitroglycerin (Nitrostat) 0.4 mg PRN Q5MIN PRN 04/18/18 00:45 Allergies Allergies Allergies Coded Allergies Type Severity Reaction Last Updated Verified codeine Allergy Severe throat swelling, tolerates Morphine 07/29/16 Yes Physical Exam Physical Exam Constitutional: Well developed, well nourished, no acute distress, non-toxic appearance. [] HENT: Normocephalic, atraumatic, bilateral external ears normal, oropharynx moist, no oral exudates, nose normal. [] Eyes: PERRLA, EOMI, conjunctiva normal, no discharge. [] Neck: Normal range of motion, no tenderness, supple, no stridor. [] Cardiovascular:Heart rate regular rhythm, no murmur [] Lungs & Thorax: Bilateral breath sounds clear to auscultation [] Abdomen: Bowel sounds normal, soft, no tenderness, no masses, no pulsatile masses. [] Skin: Warm, dry, no erythema, no rash. [] Back: No tenderness, no CVA tenderness. [] Extremities: No tenderness, no cyanosis, no clubbing, ROM intact, no edema. [] Neurologic: Alert and oriented X 3, normal motor function, normal sensory function, no focal deficits noted. [] Psychologic: Affect normal, judgement normal, mood normal. [] Current Patient Data Vital Signs Vital Signs Date Time Temp Pulse Resp B/P (MAP) Pulse Ox O2 Delivery O2 Flow Rate FiO2 04/18/18 03:30 63 19 160/70 (100) 95 Room Air 04/17/18 23:42 98.1 98.1 Lab Values Laboratory Tests Test 04/18/18 00:05 04/18/18 02:00 White Blood Count 8.9 x10^3/uL (4.0-11.0) Red Blood Count 4.53 x10^6/uL (4.30-5.70) Hemoglobin 13.2 g/dL (13.0-17.5) Hematocrit 39.5 % (39.0-53.0) Mean Corpuscular Volume 87 fL (79-100) Mean Corpuscular Hemoglobin 29 pg (25-35) Mean Corpuscular Hemoglobin Concent 33 g/dL (31-37) Red Cell Distribution Width 13.8 % (11.5-14.5) Platelet Count 245 x10^3/uL (140-400) Neutrophils (%) (Auto) 56 % (31-73) Lymphocytes (%) (Auto) 30 % (24-48) Monocytes (%) (Auto) 11 % (0-9) H Eosinophils (%) (Auto) 2 % (0-3) Basophils (%) (Auto) 1 % (0-3) Neutrophils # (Auto) 5.0 x10^3uL (1.8-7.7) Lymphocytes # (Auto) 2.7 x10^3/uL (1.0-4.8) Monocytes # (Auto) 1.0 x10^3/uL (0.0-1.1) Eosinophils # (Auto) 0.1 x10^3/uL (0.0-0.7) Basophils # (Auto) 0.1 x10^3/uL (0.0-0.2) Sodium Level 142 mmol/L (136-145) Potassium Level 4.1 mmol/L (3.5-5.1) Chloride Level 104 mmol/L (98-107) Carbon Dioxide Level 28 mmol/L (21-32) Anion Gap 10 (6-14) Blood Urea Nitrogen 17 mg/dL (8-26) Creatinine 1.3 mg/dL (0.7-1.3) Estimated GFR (Cockcroft-Gault) 56.9 BUN/Creatinine Ratio 13 (6-20) Glucose Level 109 mg/dL (70-99) H Calcium Level 9.4 mg/dL (8.5-10.1) Total Bilirubin 0.3 mg/dL (0.2-1.0) Aspartate Amino Transferase (AST) 15 U/L (15-37) Alanine Aminotransferase (ALT) 19 U/L (16-63) Alkaline Phosphatase 56 U/L (46-116) Troponin I Quantitative < 0.017 ng/mL (0.000-0.055) < 0.017 ng/mL (0.000-0.055) Total Protein 7.5 g/dL (6.4-8.2) Albumin 3.9 g/dL (3.4-5.0) Albumin/Globulin Ratio 1.1 (1.0-1.7) Laboratory Tests 04/18/18 00:05 Laboratory Tests 04/18/18 00:05 EKG EKG [] Interpretation Time: []EKG time [address] no [address] depressions no acute MS no acute change when compared to EKG performed March 02 2018 Repeat EKG 0335 Rate is [address] elevation no ST depression no acute MS Radiology/Procedures Impressions: Chest x-ray wet read sternotomy wires in place cardiomegaly no focal infiltrate no bony abnormalities Course & Med Decision Making Course & Med Decision Making Pertinent Labs and Imaging studies reviewed. (See chart for details) []He was evaluated for chief complaint. Workup consisted of laboratory analysis and radiologic imaging. EKG 2 within normal limits troponin 2 within normal limits. EMS patient received aspirin and nitroglycerin. Patient pain was treated with morphine in the ER with improvement. At this time believe patient is stable for discharge. Patient to continue all current medications patient to follow up with primary care physician. Dragon Disclaimer Dragon Disclaimer This electronic medical record was generated, in whole or in part, using a voice recognition dictation system. Departure Departure Impression: Primary Impression: Chest pain Referrals: UNKNOWN PCP NAME (PCP) ZAIN FINN DO Apr 18, 2018 00:37
[2018-04-18] MEDS ORDERED: ASPIRIN CHEWABLE 81 MG TABLET. PO ONE (00:45)
[2018-04-18] MEDS ORDERED: NITROGLYCERIN SUBLINGUAL 0.4 MG BOTTLE OF 25. SL PRN (00:45)
[2018-04-18] MEDS ORDERED: MORPHINE SULFATE 4 MG/ML VIAL. IV ONE (03:30)
[2018-04-18 04:00] VITALS: BP 136/71
--- NOTE | 2018-04-18 04:52 | RAD ---
Indication:chest pain TECHNIQUE:Portable AP chest X-ray COMPARISON:03/02/2018 FINDINGS: CABG changes noted. Heart is moderately enlarged in size. Lungs are clear. No pneumothorax or pleural effusion. Visualized bony thorax is within normal limits. IMPRESSION: No acute pulmonary process. Electronically signed by: Vincenzo Badillo DO (04/18/2018 4:48 AM) [facility]
--- NOTE | 2018-04-18 08:05 | EKG ---
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
--- NOTE | 2018-04-18 08:06 | EKG ---
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
== END 2018-04-18 04:20 | disposition home or self-care (01) ==
LOC: ER 23:40 → EEVIPCON 23:40 → ER 04-18 04:20
DX: R07.89 Other chest pain (principal); R06.02 Shortness of breath; R51 Headache; M54.2 Cervicalgia; I25.10 Atherosclerotic heart disease of native coronary artery without angina pectoris; I48.91 Unspecified atrial fibrillation; J44.9 Chronic obstructive pulmonary disease, unspecified; K21.9 Gastro-esophageal reflux disease without esophagitis; E78.00 Pure hypercholesterolemia, unspecified; I11.0 Hypertensive heart disease with heart failure; I50.9 Heart failure, unspecified; E78.5 Hyperlipidemia, unspecified; E11.9 Type 2 diabetes mellitus without complications; G89.29 Other chronic pain; Z95.1 Presence of aortocoronary bypass graft; Z95.5 Presence of coronary angioplasty implant and graft; Z87.891 Personal history of nicotine dependence; Z88.5 Allergy status to narcotic agent
CPT/HCPCS: 36415; 71045; 80053; 84484; 85025; 93005; 96374; 99284; J2270

== ENCOUNTER 2019-07-03 10:25 | Emergency (ER) | payer SELFPAY ==
[~2019-07-03] VITALS: Ht 177.8 cm; Wt 122.7 kg
[~2019-07-03 10:25] MED LIST changes: +ASPI-612; +CLON0.1T; -DICL100G18 TP; +DICL100G54 TP; +FURO20TA3; +INDO50CA15 PO; -INDO50CA5 PO; +LORA10TA3; +METO25TA4; +NAPR-514; -NITR0.4T SL; +NITR0.4T24 SL; +OMEP40CA45 PO; -OMEP40CA5 PO; -PANT40TA5 PO; +PANT40TA6; +PANT40TA77 PO; +TAMS0.4C97
[2019-07-03 11:06] LABS: BASO % 1 % (0-3); CALCIUM 8.3 mg/dL (8.5-10.1); CREATININE 1.5 mg/dL (0.7-1.3); EOS # 0.2 x10^3/uL (0.0-0.7); EOS % 2 % (0-3); GFR 48.1; HEMATOCRIT 36.8 % (39.0-53.0); HEMOGLOBIN 12.8 g/dL (13.0-17.5); LYMPH # 2.3 x10^3/uL (1.0-4.8); LYMPH % 29 % (24-48); MEAN CORPUSCULAR HEMOGLOBIN 27 pg (25-35); MEAN CORPUSCULAR HGB CONC 35 g/dL (31-37); MEAN CORPUSCULAR VOLUME 78 fL (79-100); MONO # 0.8 x10^3/uL (0.0-1.1); MONO % 10 % (0-9); NEUT # 4.8 x10^3/uL (1.8-7.7); NEUT % 59 % (31-73); PLATELET COUNT 240 x10^3/uL (140-400); POTASSIUM 4.3 mmol/L (3.5-5.1); RED BLOOD COUNT 4.73 x10^6/uL (4.30-5.70); WHITE BLOOD COUNT 8.1 x10^3/uL (4.0-11.0)
--- NOTE | 2019-07-03 11:08 | RAD ---
Single AP view of the chest. Comparison: 06/27/2019. Indication: Chest pain shortness of air, Covid positive Findings: Sternotomy wires and CABG clips are reidentified. The heart is enlarged but stable. There is no pneumothorax or effusion. No air space or interstitial disease. Impression: 1. No acute cardiopulmonary process. 2. No radiologically findings suggestive of atypical infection at this point. However plain film imaging can be less sensitive in early staging of the disease. Electronically signed by: Rodrigo Bunch MD (07/03/2019 11:05 AM) [id number]
[2019-07-03 11:12] LABS: ALBUMIN 3.4 g/dL (3.4-5.0); ALBUMIN/GLOBULIN RATIO 1.1 (1.0-1.7); MAGNESIUM 1.6 mg/dL (1.8-2.4); TOTAL BILIRUBIN 0.3 mg/dL (0.2-1.0); TOTAL PROTEIN 6.4 g/dL (6.4-8.2)
[2019-07-03 11:24] LABS: PROTHROMBIN TIME PATIENT 13.4 SEC (11.7-14.0)
[2019-07-03 11:45] VITALS: BP 93/53
--- NOTE | 2019-07-03 12:10 | PHYS DOC ---
Past Medical History Past Medical History: A-Fib, Angina, CAD, CHF, COPD, Diabetes-Type II, GERD, High Cholesterol, Hypertension, Other Additional Past Medical Histor: CHRONIC BACK PAIN, BPH, ARTEROSCLEROTIC HEART DISEASE, ADJUSTMENT DISORDER Past Surgical History: Appendectomy, Cholecystectomy, Coronary Bypass Surgery Additional Past Surgical Histo: w 3 stents, COVID-19+ Smoking Status: Current Every Day Smoker Alcohol Use: None Drug Use: None General Adult EDM: Chief Complaint: SHORTNESS OF BREATH HPI: HPI: Patient is a 58 year old male who was brought here from a hotel due to right- sided chest pain with trouble breathing. Patient was recently diagnosed with COVID-19 infection, he was admitted here on June 25 for chest pain and trouble breathing. Patient was tested positive for COVID-19 before that visit. Patient was discharged home on June 27 to a hot for quarantine. Patient has been quarantined there since. Patient said since last night he has right-sided chest pain whenever he cannot deep breath or cough. Patient said he is not cardiac chest pain, patient denies any fever. Patient is only having trouble breathing when he coughs so much. Patient does have a history of coronary disease but he said it is not the type of chest pain that he experienced when he had a heart disease. Review of Systems: Review of Systems: Constitutional: Denies fever or chills. [] Eyes: Denies change in visual acuity. [] HENT: Denies nasal congestion or sore throat. [] Respiratory: Positive for cough and trouble breathing.] Cardiovascular: Positive for chest pain. GI: Denies abdominal pain, nausea, vomiting, bloody stools or diarrhea. [] : Denies dysuria. [] Musculoskeletal: Denies back pain or joint pain. [] Integument: Denies rash. [] Neurologic: Denies headache, focal weakness or sensory changes. [] Endocrine: Denies polyuria or polydipsia. [] Lymphatic: Denies swollen glands. [] Psychiatric: Denies depression or anxiety. [] Heart Score: HEART Score for Chest Pain: HEART Score for Chest Pain Response (Comments) Value History Slighlty/Non-Suspicious 0 ECG Normal 0 Age >45 - < 65 1 Risk Factors >3 Risk Factors or Hx CAD 2 Troponin < Normal Limit 0 Total 3 Risk Factors: Risk Factors: DM, Current or recent (<one month) smoker, HTN, HLP, family history of CAD, obesity. Risk Scores: Score 0 - 3: 2.5% MACE over next 6 weeks - Discharge Home Score 4 - 6: 20.3% MACE over next 6 weeks - Admit for Clinical Observation Score 7 - 10: 72.7% MACE over next 6 weeks - Early Invasive Strategies Allergies: Allergies: Allergies Coded Allergies Type Severity Reaction Last Updated Verified codeine Allergy Severe throat swelling, tolerates Morphine 07/29/16 Yes hydrocodone Allergy Intermediate 06/28/19 Yes Physical Exam: PE: Constitutional: Well developed, well nourished, no acute distress, non-toxic appearance. [] HENT: Normocephalic, atraumatic, bilateral external ears normal, oropharynx moist, no oral exudates, nose normal. [] Eyes: PERRLA, EOMI, conjunctiva normal, no discharge. [] Neck: Normal range of motion, no tenderness, supple, no stridor. [] Cardiovascular:Heart rate regular rhythm, no murmur [] Lungs & Thorax: Bilateral breath sounds clear to auscultation [] Abdomen: Bowel sounds normal, soft, no tenderness, no masses, no pulsatile masses. [] Skin: Warm, dry, no erythema, no rash. [] Back: No tenderness, no CVA tenderness. [] Extremities: No tenderness, no cyanosis, no clubbing, ROM intact, no edema. [] Neurologic: Alert and oriented X 3, normal motor function, normal sensory function, no focal deficits noted. [] Psychologic: Affect normal, judgement normal, mood normal. [] Current Patient Data: Labs: Laboratory Tests Test 07/03/19 10:42 White Blood Count 8.1 x10^3/uL (4.0-11.0) Red Blood Count 4.73 x10^6/uL (4.30-5.70) Hemoglobin 12.8 g/dL (13.0-17.5) L Hematocrit 36.8 % (39.0-53.0) L Mean Corpuscular Volume 78 fL (79-100) L Mean Corpuscular Hemoglobin 27 pg (25-35) Mean Corpuscular Hemoglobin Concent 35 g/dL (31-37) Red Cell Distribution Width 18.0 % (11.5-14.5) H Platelet Count 240 x10^3/uL (140-400) Neutrophils (%) (Auto) 59 % (31-73) Lymphocytes (%) (Auto) 29 % (24-48) Monocytes (%) (Auto) 10 % (0-9) H Eosinophils (%) (Auto) 2 % (0-3) Basophils (%) (Auto) 1 % (0-3) Neutrophils # (Auto) 4.8 x10^3/uL (1.8-7.7) Lymphocytes # (Auto) 2.3 x10^3/uL (1.0-4.8) Monocytes # (Auto) 0.8 x10^3/uL (0.0-1.1) Eosinophils # (Auto) 0.2 x10^3/uL (0.0-0.7) Basophils # (Auto) 0.0 x10^3/uL (0.0-0.2) Prothrombin Time 13.4 SEC (11.7-14.0) Prothrombin Time INR 1.1 (0.8-1.1) Activated Partial Thromboplast Time 28 SEC (24-38) Sodium Level 140 mmol/L (136-145) Potassium Level 4.3 mmol/L (3.5-5.1) Chloride Level 105 mmol/L (98-107) Carbon Dioxide Level 26 mmol/L (21-32) Anion Gap 9 (6-14) Blood Urea Nitrogen 26 mg/dL (8-26) Creatinine 1.5 mg/dL (0.7-1.3) H Estimated GFR (Cockcroft-Gault) 48.1 BUN/Creatinine Ratio 17 (6-20) Glucose Level 101 mg/dL (70-99) H Calcium Level 8.3 mg/dL (8.5-10.1) L Magnesium Level 1.6 mg/dL (1.8-2.4) L Total Bilirubin 0.3 mg/dL (0.2-1.0) Aspartate Amino Transferase (AST) 22 U/L (15-37) Alanine Aminotransferase (ALT) 32 U/L (16-63) Alkaline Phosphatase 74 U/L (46-116) Troponin I Quantitative < 0.017 ng/mL (0.000-0.055) CB-Tid-F-Type Natriuretic Peptide 184 pg/mL (0-124) H Total Protein 6.4 g/dL (6.4-8.2) Albumin 3.4 g/dL (3.4-5.0) Albumin/Globulin Ratio 1.1 (1.0-1.7) Lipase 104 U/L (73-393) Laboratory Tests 07/03/19 10:42 Laboratory Tests 07/03/19 10:42 Vital Signs: Vital Signs Date Time Temp Pulse Resp B/P (MAP) Pulse Ox O2 Delivery O2 Flow Rate FiO2 07/03/19 10:49 98.3 63 18 105/66 (79) 93 Room Air 98.3 EKG: EKG: EKG was done at 1036, heart rate 64 beats per minutes, normal sinus rhythm, no ST segment elevation. Patient EKG was read by this physician. Radiology/Procedures: Radiology/Procedures: [][facility] [address] [place] [address] IMAGING REPORT Signed PATIENT: ARIAS BRAUN LACCOUNT: [id number] : 1960 LOCATION: ER AGE: 58 SEX: M EXAM STATUS: PRE ER ORD. PHYSICIAN: GITA BALLARD DO REASON: chest pain, soa, COVID-19 POSITIVE PROCEDURE: PORTABLE CHEST 1V Single AP view of the chest. Comparison: 06/27/2019. Indication: Chest pain shortness of air, Covid positive Findings: Sternotomy wires and CABG clips are reidentified. The heart is enlarged but stable. There is no pneumothorax or effusion. No air space or interstitial disease. Impression: 1. No acute cardiopulmonary process. 2. No radiologically findings suggestive of atypical infection at this point. However plain film imaging can be less sensitive in early staging of the disease. Electronically signed by: Rodrigo Sharma MD (07/03/2019 11:05 AM) [id number] DICTATED and SIGNED BY: RODRIGO SHARMA MD DATE: 07/03/19 1106 Course & Med Decision Making: Course & Med Decision Making Pertinent Labs and Imaging studies reviewed. (See chart for details) Patient is a 58-year-old male who was evaluated in the ER due to right-sided chest pain and trouble breathing. Patient is currently infected with COVID-19. Is symptomatic due to the infection. Patient has risk factors for heart disease, he has history of coronary disease however the type of pain, symptom is related to the COVID-19 infection, unlikely related heart. Patient'S vital signs were stable. Patient will be discharged back to the hotel to continue his quarantine. Leonoraon Disclaimer: Angelic Disclaimer: This electronic medical record was generated, in whole or in part, using a voice recognition dictation system. Departure Departure Impression: Primary Impression: COVID-19 Additional Impression: Chest pain Disposition: 01 HOME, SELF-CARE Condition: STABLE Referrals: NO PCP (PCP) follow up with your doctor as needed Patient Instructions: Chest Pain (Nonspecific) Additional Instructions: Thank you for visiting [facility]. We appreciate you trusting us with your care. If any additional problems come up please don't hesitate to return to visit us. Follow up with your primary care provider so they can plan additional care if needed and know about the problem that you had today. If symptoms worsen come back to the Emergency Department. Any concerning symptoms that start such as chest pain, shortness of air, weakness or numbness on one side of the body, running high fevers or any other concerning symptoms return to the ER. You have a viral syndrome which may include symptoms like muscle aches, fevers, chills, runny nose, cough, sneezing, sore throat, nausea, vomiting, or diarrhea. One of the potential viruses that you may have is SARS-CoV-2, the virus that causes COVID-19, also known as the Coronavirus. You are just as likely to have a different viral infection such as the common cold, flu, etc. Most patients with the Coronavirus have mild symptoms and recover on their own. Resting, staying hydrated, and sleep based on known cases can be helpful. As of todays visit, you are well enough to go home and treat your symptoms with oral fluids and over the counter medications. Coronavirus testing is not performed on most people with mild symptoms who are being discharged from the emergency department. If Coronavirus testing was performed today the results will not be available for possibly up to 3-4 days. If your result is positive you will be contacted. Please follow the following precautions at home: 1. Stay home except to get medical care. 2. As advised by the CDC, we recommend that you stay in your home and minimize contact with other people. We do not want you to spread the infection. 3. Those who are older or have significant medical issues may have more severe symptoms from this infection. We recommend self-isolation FOR AT LEAST 7 DAYS after your 1st day of symptoms. AFTER you feel better please wait AT LEAST ANOTHER WEEK before returning to regular activities and being around other people. 4. IF you become sicker and have difficulty breathing, chest pain, are unable to eat/drink, severe vomiting, diarrhea, or weakness you may need to return to the Emergency Department. 5. You should restrict activities outside of your home, except for getting medical care. DO NOT go to work, school, or public areas. Avoid using public transportation, ride sharing, or taxis. 6. Separate yourself from other people in your home. You should use a separate bathroom if possible. 7. Avoid sharing personal household items such as dishes, cups, eating utensils, towels, etc. 8. Clean all high touch surfaces every day (door knobs, counter tops, etc). Use a household cleaning spray or wipe per label instructions. 9. Clean your hands often. Wash your hands with soap and water for at least 20 seconds. 10. Cover your mouth and nose when you cough or sneeze. 11. Throw used tissues in the trash and immediately wash your hands. For additional resources please visit the CDC website or the [place] Department of Health ([phone]). GITA BALLARD DO July 03, 2019 12:10
--- NOTE | 2019-07-03 12:12 | EKG ---
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
== END 2019-07-03 13:21 | disposition home or self-care (01) ==
LOC: ER 10:25
DX: U07.1 COVID-19 (principal); R07.89 Other chest pain; R06.02 Shortness of breath; I48.91 Unspecified atrial fibrillation; I11.0 Hypertensive heart disease with heart failure; I50.9 Heart failure, unspecified; I25.10 Atherosclerotic heart disease of native coronary artery without angina pectoris; J44.9 Chronic obstructive pulmonary disease, unspecified; E78.00 Pure hypercholesterolemia, unspecified; K21.9 Gastro-esophageal reflux disease without esophagitis; G89.29 Other chronic pain; F17.200 Nicotine dependence, unspecified, uncomplicated; Z95.1 Presence of aortocoronary bypass graft; Z95.5 Presence of coronary angioplasty implant and graft; Z88.5 Allergy status to narcotic agent
CPT/HCPCS: 36415; 71045; 80053; 83690; 83735; 83880; 84484; 85025; 85610; 85730; 93005; 99285-25

== ENCOUNTER 2019-07-13 12:12 | Emergency (ER) | payer SELFPAY ==
[~2019-07-13] VITALS: Ht 177.8 cm; Wt 127.2 kg
--- NOTE | 2019-07-13 12:44 | RAD ---
PORTABLE CHEST 1V 07/13/2019 12:17 PM INDICATION: Chest pain COMPARISON: 07/03/2019, 06/27/2019 TECHNIQUE: Portable frontal view of the chest is provided. FINDINGS: The cardiomediastinal silhouette is similar in appearance. Median sternotomy changes are present. No new airspace consolidation. Mild chronic interstitial changes are present. No significant pulmonary vascular congestion, pleural effusions or pneumothorax. There is a remote healed right posterior seventh rib fracture. No suspicious osseous abnormality. IMPRESSION: Mild chronic interstitial changes without acute cardiopulmonary process. Electronically signed by: Yumiko Baker MD (07/13/2019 12:41 PM) SONAM
[2019-07-13 13:06] LABS: BASO # 0.1 x10^3/uL (0.0-0.2); BASO % 1 % (0-3); EOS # 0.2 x10^3/uL (0.0-0.7); EOS % 3 % (0-3); HEMATOCRIT 35.4 % (39.0-53.0); HEMOGLOBIN 12.1 g/dL (13.0-17.5); LYMPH # 2.1 x10^3/uL (1.0-4.8); LYMPH % 24 % (24-48); MEAN CORPUSCULAR HEMOGLOBIN 27 pg (25-35); MEAN CORPUSCULAR HGB CONC 34 g/dL (31-37); MEAN CORPUSCULAR VOLUME 79 fL (79-100); MONO # 0.8 x10^3/uL (0.0-1.1); MONO % 9 % (0-9); NEUT # 5.6 x10^3/uL (1.8-7.7); NEUT % 63 % (31-73); PLATELET COUNT 230 x10^3/uL (140-400); RED BLOOD COUNT 4.51 x10^6/uL (4.30-5.70); RED CELL DISTRIBUTION WIDTH 18.4 % (11.5-14.5); WHITE BLOOD COUNT 8.8 x10^3/uL (4.0-11.0)
[2019-07-13 13:18] LABS: PROTHROMBIN TIME PATIENT 13.6 SEC (11.7-14.0)
[2019-07-13 13:38] LABS: CALCIUM 8.5 mg/dL (8.5-10.1); CREATININE 1.7 mg/dL (0.7-1.3); GFR 41.6; POTASSIUM 3.8 mmol/L (3.5-5.1)
[2019-07-13 13:42] LABS: ALBUMIN 3.6 g/dL (3.4-5.0); ALBUMIN/GLOBULIN RATIO 1.2 (1.0-1.7); MAGNESIUM 1.9 mg/dL (1.8-2.4); TOTAL BILIRUBIN 0.4 mg/dL (0.2-1.0); TOTAL PROTEIN 6.7 g/dL (6.4-8.2)
--- NOTE | 2019-07-13 15:29 | PHYS DOC ---
Past Medical History Past Medical History: A-Fib, Angina, CAD, CHF, COPD, Diabetes-Type II, GERD, High Cholesterol, Hypertension, Pneumonia, Other Additional Past Medical Histor: CHRONIC BACK PAIN,BPH,ARTEROSCLEROTIC HEART DISEASE,ADJUSTMENT DISORDER Past Surgical History: Angioplasty, Appendectomy, Cholecystectomy, Coronary Bypass Surgery Additional Past Surgical Histo: w 3 stents, COVID-19+ Smoking Status: Current Every Day Smoker Additional Information: 1 PPD Alcohol Use: None Drug Use: None General Adult EDM: Chief Complaint: CHEST PAIN HPI: HPI: Patient is a 58 year old male who was brought here by EMS due to chest pain on the right side. Patient was admitted here last month, was tested positive for COVID-19 on June 26. He was admitted for chest pain, it was found that it was noncardiac chest pain. Patient was discharged to the [facility] for quarantine for 14 days. Patient was brought back to this ER on July 02 for the same type chest pain, this physician evaluated patient at that time. EKG, lab work and chest x- ray at that time did not show any acute problem. Patient was discharged back to the [facility] to continue to be quarantined. Patient was released from the hospital yesterday after he finished quarantine. Patient had no fever, no trouble breathing. Patient tried to go to a [facility] [place] last night, but they would not accept him because he was tested positive for COVID-19 recently (on JUNE 26) so he was sleeping on the street last night. Patient currently is homeless, he called EMS to take him here because he is continued to have the same type chest pain. Review of Systems: Review of Systems: Constitutional: Denies fever or chills. [] Eyes: Denies change in visual acuity. [] HENT: Denies nasal congestion or sore throat. [] Respiratory: Denies cough or shortness of breath. [] Cardiovascular: Positive for chest pain, no edema GI: Denies abdominal pain, nausea, vomiting, bloody stools or diarrhea. [] : Denies dysuria. [] Musculoskeletal: Denies back pain or joint pain. [] Integument: Denies rash. [] Neurologic: Denies headache, focal weakness or sensory changes. [] Endocrine: Denies polyuria or polydipsia. [] Lymphatic: Denies swollen glands. [] Psychiatric: Denies depression or anxiety. [] Heart Score: Risk Factors: Risk Factors: DM, Current or recent (<one month) smoker, HTN, HLP, family history of CAD, obesity. Risk Scores: Score 0 - 3: 2.5% MACE over next 6 weeks - Discharge Home Score 4 - 6: 20.3% MACE over next 6 weeks - Admit for Clinical Observation Score 7 - 10: 72.7% MACE over next 6 weeks - Early Invasive Strategies Allergies: Allergies: Allergies Coded Allergies Type Severity Reaction Last Updated Verified codeine Allergy Severe throat swelling, tolerates Morphine 07/29/16 Yes hydrocodone Allergy Intermediate 06/28/19 Yes Physical Exam: PE: Constitutional: Well developed, well nourished, no acute distress, non-toxic appearance. [] HENT: Normocephalic, atraumatic, bilateral external ears normal, oropharynx moist, no oral exudates, nose normal. [] Eyes: PERRLA, EOMI, conjunctiva normal, no discharge. [] Neck: Normal range of motion, no tenderness, supple, no stridor. [] Cardiovascular:Heart rate regular rhythm, no murmur [] Lungs & Thorax: Bilateral breath sounds clear to auscultation [] Abdomen: Bowel sounds normal, soft, no tenderness, no masses, no pulsatile masses. [] Skin: Warm, dry, no erythema, no rash. [] Back: No tenderness, no CVA tenderness. [] Extremities: No tenderness, no cyanosis, no clubbing, ROM intact, no edema. [] Neurologic: Alert and oriented X 3, normal motor function, normal sensory function, no focal deficits noted. [] Psychologic: Affect normal, judgement normal, mood normal. [] Current Patient Data: Labs: Laboratory Tests Test 07/13/19 12:44 White Blood Count 8.8 x10^3/uL (4.0-11.0) Red Blood Count 4.51 x10^6/uL (4.30-5.70) Hemoglobin 12.1 g/dL (13.0-17.5) L Hematocrit 35.4 % (39.0-53.0) L Mean Corpuscular Volume 79 fL (79-100) Mean Corpuscular Hemoglobin 27 pg (25-35) Mean Corpuscular Hemoglobin Concent 34 g/dL (31-37) Red Cell Distribution Width 18.4 % (11.5-14.5) H Platelet Count 230 x10^3/uL (140-400) Neutrophils (%) (Auto) 63 % (31-73) Lymphocytes (%) (Auto) 24 % (24-48) Monocytes (%) (Auto) 9 % (0-9) Eosinophils (%) (Auto) 3 % (0-3) Basophils (%) (Auto) 1 % (0-3) Neutrophils # (Auto) 5.6 x10^3/uL (1.8-7.7) Lymphocytes # (Auto) 2.1 x10^3/uL (1.0-4.8) Monocytes # (Auto) 0.8 x10^3/uL (0.0-1.1) Eosinophils # (Auto) 0.2 x10^3/uL (0.0-0.7) Basophils # (Auto) 0.1 x10^3/uL (0.0-0.2) Prothrombin Time 13.6 SEC (11.7-14.0) Prothrombin Time INR 1.1 (0.8-1.1) Activated Partial Thromboplast Time 31 SEC (24-38) Sodium Level 140 mmol/L (136-145) Potassium Level 3.8 mmol/L (3.5-5.1) Chloride Level 105 mmol/L (98-107) Carbon Dioxide Level 24 mmol/L (21-32) Anion Gap 11 (6-14) Blood Urea Nitrogen 27 mg/dL (8-26) H Creatinine 1.7 mg/dL (0.7-1.3) H Estimated GFR (Cockcroft-Gault) 41.6 BUN/Creatinine Ratio 16 (6-20) Glucose Level 120 mg/dL (70-99) H Calcium Level 8.5 mg/dL (8.5-10.1) Magnesium Level 1.9 mg/dL (1.8-2.4) Total Bilirubin 0.4 mg/dL (0.2-1.0) Aspartate Amino Transferase (AST) 24 U/L (15-37) Alanine Aminotransferase (ALT) 20 U/L (16-63) Alkaline Phosphatase 74 U/L (46-116) Troponin I Quantitative < 0.017 ng/mL (0.000-0.055) PN-Zws-X-Type Natriuretic Peptide 107 pg/mL (0-124) Total Protein 6.7 g/dL (6.4-8.2) Albumin 3.6 g/dL (3.4-5.0) Albumin/Globulin Ratio 1.2 (1.0-1.7) Lipase 97 U/L (73-393) Laboratory Tests 07/13/19 12:44 Laboratory Tests 07/13/19 12:44 Vital Signs: Vital Signs Date Time Temp Pulse Resp B/P (MAP) Pulse Ox O2 Delivery O2 Flow Rate FiO2 07/13/19 15:03 76 145/95 (112) 96 Room Air 07/13/19 12:12 99.3 19 99.3 EKG: EKG: [] EKG was done at 1218, heart rate of 92 bpm, sinus rhythm, some PVC, no ST seg ment elevation. Radiology/Procedures: Radiology/Procedures: [][facility] [address] [place], [place] [id number] IMAGING REPORT Signed PATIENT: ARIAS BRAUN LACCOUNT: [id number] : 1960 LOCATION: ER AGE: 58 SEX: M EXAM STATUS: PRE ER ORD. PHYSICIAN: GITA BALLARD DO REASON: CHEST PAIN PROCEDURE: PORTABLE CHEST 1V PORTABLE CHEST 1V 07/13/2019 12:17 PM INDICATION: Chest pain COMPARISON: 07/03/2019, 06/27/2019 TECHNIQUE: Portable frontal view of the chest is provided. FINDINGS: The cardiomediastinal silhouette is similar in appearance. Median sternotomy changes are present. No new airspace consolidation. Mild chronic interstitial changes are present. No significant pulmonary vascular congestion, pleural effusions or pneumothorax. There is a remote healed right posterior seventh rib fracture. No suspicious osseous abnormality. IMPRESSION: Mild chronic interstitial changes without acute cardiopulmonary process. Electronically signed by: Gigi Lugo MD (07/13/2019 12:41 PM) [facility] DICTATED and SIGNED BY: GIIG LUGO MD DATE: 07/13/19 1246 Course & Med Decision Making: Course & Med Decision Making Pertinent Labs and Imaging studies reviewed. (See chart for details) Patient is a 58-year-old homeless male who was evaluated in the ER here several times for the same type chest pain, it is noncardiac in nature because IT WAS sharp and lasted for few seconds each time. Patient had COVID-19 nfection recently. He IS recoverING from the infection. Chest pain is noncardiac in nature at this time, he will be discharged home. There was no COVID-19 testing done during this visit. Dragon Disclaimer: Dragon Disclaimer: This electronic medical record was generated, in whole or in part, using a voice recognition dictation system. Departure Departure Impression: Primary Impression: Chest pain Additional Impression: COVID-19 Disposition: HOME, SELF-CARE Condition: STABLE Referrals: NO PCP (PCP) follow up with your doctor Patient Instructions: Chest Pain (Nonspecific) Additional Instructions: Thank you for visiting [facility]. We appreciate you trusting us with your care. If any additional problems come up please don't hesitate to return to visit us. Follow up with your primary care provider so they can plan additional care if needed and know about the problem that you had today. If symptoms worsen come back to the Emergency Department. Any concerning symptoms that start such as chest pain, shortness of air, weakness or numbness on one side of the body, running high fevers or any other concerning symptoms return to the ER. You have a viral syndrome which may include symptoms like muscle aches, fevers, chills, runny nose, cough, sneezing, sore throat, nausea, vomiting, or diarrhea. One of the potential viruses that you may have is SARS-CoV-2, the virus that causes COVID-19, also known as the Coronavirus. You are just as likely to have a different viral infection such as the common cold, flu, etc. Most patients with the Coronavirus have mild symptoms and recover on their own. Resting, staying hydrated, and sleep based on known cases can be helpful. As of todays visit, you are well enough to go home and treat your symptoms with oral fluids and over the counter medications. Coronavirus testing is not performed on most people with mild symptoms who are b eing discharged from the emergency department. If Coronavirus testing was performed today the results will not be available for possibly up to 3-4 days. If your result is positive you will be contacted. Please follow the following precautions at home: 1. Stay home except to get medical care. 2. As advised by the CDC, we recommend that you stay in your home and minimize contact with other people. We do not want you to spread the infection. 3. Those who are older or have significant medical issues may have more severe symptoms from this infection. We recommend self-isolation FOR AT LEAST 7 DAYS after your 1st day of symptoms. AFTER you feel better please wait AT LEAST ANOTHER WEEK before returning to regular activities and being around other people. 4. IF you become sicker and have difficulty breathing, chest pain, are unable to eat/drink, severe vomiting, diarrhea, or weakness you may need to return to the Emergency Department. 5. You should restrict activities outside of your home, except for getting medical care. DO NOT go to work, school, or public areas. Avoid using public tr ansportation, ride sharing, or taxis. 6. Separate yourself from other people in your home. You should use a separate bathroom if possible. 7. Avoid sharing personal household items such as dishes, cups, eating utensils, towels, etc. 8. Clean all high touch surfaces every day (door knobs, counter tops, etc). Use a household cleaning spray or wipe per label instructions. 9. Clean your hands often. Wash your hands with soap and water for at least 20 seconds. 10. Cover your mouth and nose when you cough or sneeze. 11. Throw used tissues in the trash and immediately wash your hands. For additional resources please visit the CDC website or the [place] Department of Health ([phone]). Justicifation of Admission Dx: Justifications for Admission: Justification of Admission Dx: N/A GITA BALLARD DO Jul 13, 2019 15:29
[2019-07-13 21:58] VITALS: BP 172/108
--- NOTE | 2019-07-14 04:27 | EKG ---
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
== END 2019-07-13 22:10 | disposition home or self-care (01) ==
LOC: ER 12:12
DX: U07.1 COVID-19 (principal); R07.89 Other chest pain; I48.20 Chronic atrial fibrillation, unspecified; J44.9 Chronic obstructive pulmonary disease, unspecified; I11.0 Hypertensive heart disease with heart failure; I50.9 Heart failure, unspecified; E11.9 Type 2 diabetes mellitus without complications; E78.00 Pure hypercholesterolemia, unspecified; K21.9 Gastro-esophageal reflux disease without esophagitis; G89.29 Other chronic pain; Z90.89 Acquired absence of other organs; Z90.49 Acquired absence of other specified parts of digestive tract; F17.200 Nicotine dependence, unspecified, uncomplicated; Z59.0 Homelessness; Z88.5 Allergy status to narcotic agent
CPT/HCPCS: 36415; 71045; 80053; 83690; 83735; 83880; 84484; 85025; 85610; 85730; 93005; 99285